=== PATIENT | female | born 1940 | race Caucasian/White ===

== ENCOUNTER 2020-08-02 13:03 | Emergency (ER) | payer MEDICARE ==
[~2020-08-02] VITALS: Ht 157.5 cm; Wt 107.0 kg
[~2020-08-02 13:03] MED LIST: ASPI-889 PO; AZAT50TA PO; BISA10SU4 RC; BISA10SU55 RC; CA/D1TAB3 PO; CARV25TA2 PO; CIPR2.5D OD; CLIN300C8 PO; DICL100G18 TP; DIGO125T17 PO; DILT120C99 PO; DOCU100C28 PO; DULO60CA6 PO; FENO134C PO; GLYC1SUP61 RC; IMIP25TA3 PO; LEVO175T5 PO; LEVO200T5 PO; LOPE2CAP PO; LORA-254 PO; MAG355OR17 PO; MAG355OR30 PO; MAGN24003 PO; MENT71OI TP; MESA800T2 PO; METH29OI TP; NA P133E2 RC; NA P133E6 RC; NYST15CR2 TP; NYST1POW2 TP; OXYC5TAB4 PO; POLY255P11 PO; PROP1DRO6 EACHEYE; QUET25TA5 PO; SERT25TA4 PO; SULF1TAB24 PO; TOLT4CAP PO; TRAM50TA PO; TRAZ-120 PO; TRAZ150T49 PO
--- NOTE | 2020-08-02 14:33 | RAD ---
Examination: CT HEAD AND CERVICAL SPINE WO History: Reason: FELL, HEAD AND NECK PAIN / Spl. Instructions: / History: Comparison/Correlation: None Findings: Axial images of the head and cervical spine were obtained without contrast. Sagittal and coronal reformatted images of the cervical spine were provided. Moderate atrophy and chronic ischemic changes but matter noted. No intracranial hemorrhage, shift, or mass effect. 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 Orbits are unremarkable. Large left pito bullosa is present. Small right pito bullosa noted. Minimal mucosal thickening of the left maxillary sinus is present. Mild atlantoaxial degenerative changes present. Moderate C5-C7 disc space narrowing is present. Uncovertebral joint spurring at C5-6 bilaterally with mild bony encroachment identified. Soft tissues of the neck are unremarkable. Thyroid gland unremarkable. Impression: No intracranial hemorrhage. No fracture or cervical spine malalignment. PQRS Compliance Statement: One or more of the following individualized dose reduction techniques were utilized for this examination: 1. Automated exposure control 2. Adjustment of the mA and/or kV according to patient size 3. Use of iterative reconstruction technique Electronically signed by: Kenneth Flaherty MD (08/02/2020 2:30 PM) [id number]
--- NOTE | 2020-08-02 14:36 | RAD ---
Examination: KNEE LEFT 3V History: Reason: fell,left knee injured / Spl. Instructions: / History: Comparison/Correlation: None Findings: Total of 3 images of the left knee were obtained. Severe narrowing of the medial compartment with remodeling is present. Severe varus deformity of the left knee is present. Patellofemoral compartment degenerative remodeling is present. No fracture or bone destruction. Soft tissues are unremarkable for the patient's age. 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 Patellofemoral compartment and remodeling of a lesser extent.. Electronically signed by: Kenneth Flaherty MD (08/02/2020 2:33 PM) [id number]
[2020-08-02 15:13] LABS: BASO # 0.1 x10^3/uL (0.0-0.2); BASO % 1 % (0-3); EOS # 0.1 x10^3/uL (0.0-0.7); EOS % 2 % (0-3); HEMATOCRIT 31.7 % (36.0-47.0); HEMOGLOBIN 9.3 g/dL (12.0-15.5); LYMPH # 1.6 x10^3/uL (1.0-4.8); LYMPH % 19 % (24-48); MEAN CORPUSCULAR HEMOGLOBIN 21 pg (25-35); MEAN CORPUSCULAR HGB CONC 29 g/dL (31-37); MEAN CORPUSCULAR VOLUME 70 fL (79-100); MONO # 0.9 x10^3/uL (0.0-1.1); MONO % 11 % (0-9); NEUT # 5.6 x10^3uL (1.8-7.7); NEUT % 67 % (31-73); PLATELET COUNT 347 x10^3/uL (140-400); RED BLOOD COUNT 4.51 x10^6/uL (3.50-5.40); WHITE BLOOD COUNT 8.3 x10^3/uL (4.0-11.0)
[2020-08-02 15:20] LABS: CALCIUM 9.4 mg/dL (8.5-10.1); CREATININE 0.9 mg/dL (0.6-1.0); GFR 60.6; POTASSIUM 4.1 mmol/L (3.5-5.1)
[2020-08-02 15:27] LABS: ALBUMIN 2.8 g/dL (3.4-5.0); ALBUMIN/GLOBULIN RATIO 0.6 (1.0-1.7); MAGNESIUM 2.4 mg/dL (1.8-2.4); TOTAL BILIRUBIN 0.3 mg/dL (0.2-1.0); TOTAL PROTEIN 7.4 g/dL (6.4-8.2)
--- NOTE | 2020-08-02 15:32 | EKG ---
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
[2020-08-02 15:41] LABS: BILIRUBIN,URINE NEG (NEG); CLARITY,URINE CLEAR; COLOR,URINE STRAW; GLUCOSE,URINE NEG (NEG)
[2020-08-02 15:42] LABS: BACTERIA,URINE FEW /HPF (0-FEW); NITRITE,URINE NEG (NEG); SQUAMOUS EPITHELIAL CELL,UR MOD /LPF; UROBILINOGEN,URINE 0.2 mg/dL (0.2 mg/dL); WBC,URINE 0 /HPF (0-4)
--- NOTE | 2020-08-02 16:18 | PHYS DOC ---
Past History Past Medical History: A-Fib, Anxiety, Arthritis, GERD, Heart Disease, Hypertension Past Surgical History: No Surgical History Alcohol Use: None Drug Use: None General Adult EDM: Chief Complaint: MECHANICAL FALL HPI: HPI: Patient is a 79-year-old female who was brought here by EMS from home after she fell out of her wheelchair. Patient tried to get out of her wheelchair, lost control and fell down, hit the back of her head on the ground. Patient also hit left shoulder on the ground, and left knee on the ground. Patient is on Eliquis. Patient denies any chest pain, no abdominal pain, no back pain. Patient denies any pain in her left shoulder. Review of Systems: Review of Systems: Constitutional: Denies fever or chills Eyes: Denies change in visual acuity HENT: Denies nasal congestion or sore throat Respiratory: Denies cough or shortness of breath Cardiovascular: Denies chest pain or edema GI: Denies abdominal pain, nausea, vomiting, bloody stools or diarrhea : Denies dysuria Musculoskeletal: Denies back pain , positive for left knee pain. Integument: Denies rash Neurologic: Positive for headache, no focal weakness or numbness. Endocrine: Denies polyuria or polydipsia Lymphatic: Denies swollen glands Psychiatric: Denies depression or anxiety Heart Score: Risk Factors: Risk Factors: DM, Current or recent (<one month) smoker, HTN, HLP, family history of CAD, obesity. Risk Scores: Score 0 - 3: 2.5% MACE over next 6 weeks - Discharge Home Score 4 - 6: 20.3% MACE over next 6 weeks - Admit for Clinical Observation Score 7 - 10: 72.7% MACE over next 6 weeks - Early Invasive Strategies Allergies: Allergies: Allergies Coded Allergies Type Severity Reaction Last Updated Verified Penicillins Allergy Intermediate 12/18/14 Yes acetaminophen Allergy Intermediate 12/18/14 Yes tetanus toxoid, adsorbed Allergy Intermediate 12/18/14 Yes Physical Exam: PE: Constitutional: Well developed, well nourished, no acute distress, non-toxic appearance. OBESE. HENT: Normocephalic, scalp contusion on occipital area, no laceration, bilateral external ears normal, oropharynx moist, no oral exudates, nose normal. [] Eyes: PERRLA, EOMI, conjunctiva normal, no discharge. [] Neck: Normal range of motion, no tenderness, supple, no stridor. [] Cardiovascular:Heart rate regular rhythm, no murmur [] Lungs & Thorax: Bilateral breath sounds clear to auscultation [] Abdomen: Bowel sounds normal, soft, no tenderness, no masses, no pulsatile masses. [] Skin: Warm, dry, no erythema, no rash. [] Back: No tenderness, no CVA tenderness. [] Extremities: THERE IS SUPERFICIAL SKIN CONTUSION ON LEFT SHOULDER BUT NO BONY TENDERNESS TO PALPATION, THERE IS FULL RANGE OF MOTION. There is contusion and tender to palpation on left anterior knee cap, full range of motion. NO PELVIC TENDER OR HIPS TENDER TO PALPATION. Neurologic: Alert and oriented X 3, normal motor function, normal sensory function, no focal deficits noted. [] Psychologic: Affect normal, judgement normal, mood normal. [] Current Patient Data: Labs: Laboratory Tests Test 08/02/20 14:06 08/02/20 14:07 08/02/20 15:05 White Blood Count 8.3 x10^3/uL (4.0-11.0) Red Blood Count 4.51 x10^6/uL (3.50-5.40) Hemoglobin 9.3 g/dL (12.0-15.5) L Hematocrit 31.7 % (36.0-47.0) L Mean Corpuscular Volume 70 fL (79-100) L Mean Corpuscular Hemoglobin 21 pg (25-35) L Mean Corpuscular Hemoglobin Concent 29 g/dL (31-37) L Red Cell Distribution Width 20.0 % (11.5-14.5) H Platelet Count 347 x10^3/uL (140-400) Neutrophils (%) (Auto) 67 % (31-73) Lymphocytes (%) (Auto) 19 % (24-48) L Monocytes (%) (Auto) 11 % (0-9) H Eosinophils (%) (Auto) 2 % (0-3) Basophils (%) (Auto) 1 % (0-3) Neutrophils # (Auto) 5.6 x10^3uL (1.8-7.7) Lymphocytes # (Auto) 1.6 x10^3/uL (1.0-4.8) Monocytes # (Auto) 0.9 x10^3/uL (0.0-1.1) Eosinophils # (Auto) 0.1 x10^3/uL (0.0-0.7) Basophils # (Auto) 0.1 x10^3/uL (0.0-0.2) Prothrombin Time 11.6 SEC (9.4-11.4) H Prothrombin Time INR 1.1 (0.9-1.1) Activated Partial Thromboplast Time 25 SEC (23-33) Sodium Level 140 mmol/L (136-145) Potassium Level 4.1 mmol/L (3.5-5.1) Chloride Level 104 mmol/L (98-107) Carbon Dioxide Level 27 mmol/L (21-32) Anion Gap 9 (6-14) Blood Urea Nitrogen 20 mg/dL (7-20) Creatinine 0.9 mg/dL (0.6-1.0) Estimated GFR (Cockcroft-Gault) 60.6 BUN/Creatinine Ratio 22 (6-20) H Glucose Level 98 mg/dL (70-99) Calcium Level 9.4 mg/dL (8.5-10.1) Magnesium Level 2.4 mg/dL (1.8-2.4) Total Bilirubin 0.3 mg/dL (0.2-1.0) Aspartate Amino Transferase (AST) 12 U/L (15-37) L Alanine Aminotransferase (ALT) 11 U/L (14-59) L Alkaline Phosphatase 100 U/L (46-116) Total Protein 7.4 g/dL (6.4-8.2) Albumin 2.8 g/dL (3.4-5.0) L Albumin/Globulin Ratio 0.6 (1.0-1.7) L Troponin I Quantitative < 0.017 ng/mL (0-0.055) Urine Collection Type U cath Urine Color Straw Urine Clarity Clear Urine pH 7.0 Urine Specific [place] 1.020 Urine Protein Neg (NEG-TRACE) Urine Glucose (UA) Neg mg/dL (NEG) Urine Ketones (Stick) Neg mg/dL (NEG) Urine Blood Trace (NEG) Urine Nitrite Neg (NEG) Urine Bilirubin Neg (NEG) Urine Urobilinogen Dipstick 0.2 mg/dL (0.2 mg/dL) Urine Leukocyte Esterase Neg (NEG) Urine RBC 1-2 /HPF (0-2) Urine WBC 0 /HPF (0-4) Urine Squamous Epithelial Cells Mod /LPF Urine Bacteria Few /HPF (0-FEW) Vital Signs: Vital Signs Date Time Temp Pulse Resp B/P (MAP) Pulse Ox O2 Delivery O2 Flow Rate FiO2 08/02/20 14:28 98.4 54 20 141/75 (97) 99 Room Air EKG: EKG: [] Radiology/Procedures: Radiology/Procedures: [][address] [address] IMAGING REPORT Signed PATIENT: MCKENZIE ROCHA JACCOUNT: [id number] : 1940 LOCATION: ER AGE: 79 SEX: F EXAM STATUS: REG ER ORD. PHYSICIAN: JR AGOSTO DO REASON: FELL, HEAD AND NECK PAIN PROCEDURE: CT HEAD AND CERVICAL SPINE WO Examination: CT HEAD AND CERVICAL SPINE WO History: Reason: FELL, HEAD AND NECK PAIN / Spl. Instructions: / History: Comparison/Correlation: None Findings: Axial images of the head and cervical spine were obtained without contrast. Sagittal and coronal reformatted images of the cervical spine were provided. Moderate atrophy and chronic ischemic changes but matter noted. No intracranial hemorrhage, shift, or mass effect. 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 Orbits are unremarkable. Large left pito bullosa is present. Small right pito bullosa noted. Minimal mucosal thickening of the left maxillary sinus is present. Mild atlantoaxial degenerative changes present. Moderate C5-C7 disc space narrowing is present. Uncovertebral joint spurring at C5-6 bilaterally with mild bony encroachment identified. Soft tissues of the neck are unremarkable. Thyroid gland unremarkable. Impression: No intracranial hemorrhage. No fracture or cervical spine malalignment. PQRS Compliance Statement: One or more of the following individualized dose reduction techniques were utilized for this examination: 1. Automated exposure control 2. Adjustment of the mA and/or kV according to patient size 3. Use of iterative reconstruction technique Electronically signed by: Kenneth Contreras MD (08/02/2020 2:30 PM) [id number] DICTATED AND SIGNED BY: KENNETH CONTRERAS MD DATE: 08/02/20 2991 CC: JR AGOSTO DO; SO VICKERS MD ~ [address] [address] IMAGING REPORT Signed PATIENT: MCKENZIE ROCHA: [id number] : 1940 LOCATION: ER AGE: 79 SEX: F EXAM STATUS: REG ER ORD. PHYSICIAN: JR AGOSTO DO REASON: fell,left knee injured PROCEDURE: KNEE LEFT 3V Examination: KNEE LEFT 3V History: Reason: fell,left knee injured / Spl. Instructions: / History: Comparison/Correlation: None Findings: Total of 3 images of the left knee were obtained. Severe narrowing of the medial compartment with remodeling is present. Severe varus deformity of the left knee is present. Patellofemoral compartment degenerative remodeling is present. No fracture or bone destruction. Soft tissues are unremarkable for the patient's age. 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 Patellofemoral compartment and remodeling of a lesser extent.. Electronically signed by: Kenneth Contreras MD (08/02/2020 2:33 PM) [id number] DICTATED AND SIGNED BY: KENNETH CONTRERAS MD DATE: 08/02/20 143 CC: JR AGOSTO DO; SO VICKERS MD ~ [address] [address] IMAGING REPORT Signed PATIENT: MCKENZIE ROCHAUNT: [id number] : 1940 LOCATION: ER AGE: 79 SEX: F EXAM STATUS: REG ER ORD. PHYSICIAN: JR AGOSTO DO REASON: fell,left knee injured PROCEDURE: KNEE LEFT 3V Examination: KNEE LEFT 3V History: Reason: fell,left knee injured / Spl. Instructions: / History: Comparison/Correlation: None Findings: Total of 3 images of the left knee were obtained. Severe narrowing of the medial compartment with remodeling is present. Severe varus deformity of the left knee is present. Patellofemoral compartment degenerative remodeling is present. No fracture or bone destruction. Soft tissues are unremarkable for the patient's age. 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 Patellofemoral compartment and remodeling of a lesser extent.. Electronically signed by: Kenneth Contreras MD (08/02/2020 2:33 PM) [id number] DICTATED AND SIGNED BY: KENNETH CONTRERAS MD DATE: 08/02/201432 CC: JR AGOSTO DO; SO VICKERS MD ~ [place] [address] IMAGING REPORT Signed PATIENT: MCKENZIE ROCHA JACCOUNT: [id number] : 1940 LOCATION: ER AGE: 79 SEX: F EXAM STATUS: REG ER ORD. PHYSICIAN: JR AGOSTO DO REASON: fell,left knee injured PROCEDURE: KNEE LEFT 3V Examination: KNEE LEFT 3V History: Reason: fell,left knee injured / Spl. Instructions: / History: Comparison/Correlation: None Findings: Total of 3 images of the left knee were obtained. Severe narrowing of the medial compartment with remodeling is present. Severe varus deformity of the left knee is present. Patellofemoral compartment degenerative remodeling is present. No fracture or bone destruction. Soft tissues are unremarkable for the patient's age. 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 Patellofemoral compartment and remodeling of a lesser extent.. Electronically signed by: Kenneth Contreras MD (08/02/2020 2:33 PM) [id number] DICTATED AND SIGNED BY: KENNETH CONTRERAS MD DATE: 08/02/201432 CC: JR AGOSTO DO; SO VICKERS MD ~ Course & Med Decision Making: Course & Med Decision Making Pertinent Labs and Imaging studies reviewed. (See chart for details) Patient is a 79-year-old female who was brought here by EMS from home due to head injury. Patient was on blood thinner, CT scan her head did not show any acute problem. X-ray of her left knee did not show any acute problem. Patient was awake alert and oriented. Patient was discharged home in stable condition. Dragon Disclaimer: Dragon Disclaimer: This electronic medical record was generated, in whole or in part, using a voice recognition dictation system. Departure Departure: Impression: Primary Impression: Head injury Disposition: 01 HOME/RESIDENCE PRIOR TO ADM Condition: STABLE Referrals: SO VICKERS MD (PCP) PLEASE CALL YOUR FAMILY DOCTOR FOR FOLLOW UP NEXT WEEK Patient Instructions: Head Injury, Adult Additional Instructions: Thank you for visiting our Emergency Department. We appreciate you trusting us with your care. If any additional problems come up don't hesitate to return to visit us. Please follow up with your primary care provider so they can plan berny tional care if needed and know about the problem that you had. If symptoms worsen come back to the Emergency Department. Any concerning symptoms that start such as chest pain, shortness of air, weakness or numbness on one side of the body, running high fevers or any other concerning symptoms return to the ER. JR AGOSTO DO Aug 02, 2020 16:18
[2020-08-02 16:32] VITALS: BP 138/54
== END 2020-08-02 17:24 | disposition home or self-care (01) ==
LOC: ER 13:03
DX: S40.022A Contusion of left upper arm, initial encounter (principal); S00.03XA Contusion of scalp, initial encounter; S80.02XA Contusion of left knee, initial encounter; I48.91 Unspecified atrial fibrillation; K21.9 Gastro-esophageal reflux disease without esophagitis; I11.9 Hypertensive heart disease without heart failure; M19.90 Unspecified osteoarthritis, unspecified site; Z88.0 Allergy status to penicillin; Z88.7 Allergy status to serum and vaccine; Z88.6 Allergy status to analgesic agent; V92.09XA Drowning and submersion due to fall off unspecified watercraft, initial encounter; Y93.89 Activity, other specified; Y92.89 Other specified places as the place of occurrence of the external cause; Y99.8 Other external cause status
CPT/HCPCS: 36415; 70450; 72125; 73562; 80053; 81001; 83735; 84484; 85025; 85610; 85730; 93005; 99285-25

== ENCOUNTER 2020-11-22 13:37 | Emergency (ER) | payer MEDICARE ==
[~2020-11-22] VITALS: Ht 157.5 cm; Wt 119.0 kg
[~2020-11-22 13:37] MED LIST changes: -CIPR2.5D OD; +CIPR2.5D2 OD; -CLIN300C8 PO; +CLIN300C9 PO
[2020-11-22 13:41] VITALS: BP 154/63
--- NOTE | 2020-11-22 14:46 | PHYS DOC ---
Past History Past Medical History: A-Fib, Anxiety, Arthritis, GERD, Heart Disease, Hypertension Past Surgical History: Hysterectomy Alcohol Use: None Drug Use: None Adult General Chief Complaint Chief Complaint: MECHANICAL FALL HPI HPI Patient 80-year-old female who presents to the emergency room after sitting on the floor due to her legs giving out. This is not unusual for her. She states that she is supposed to go live at a nursing facility that she has a bed at because of this. She denies hurting anything. She states that she feels completely normal. She would like to just go to the nursing facility. She has no other complaints. Review of Systems Review of Systems Complete ROS is negative unless otherwise documented in HPI Allergies Allergies Allergies Coded Allergies Type Severity Reaction Last Updated Verified Penicillins Allergy Intermediate 11/22/20 Yes acetaminophen Allergy Intermediate 11/22/20 Yes tetanus toxoid, adsorbed Allergy Intermediate 11/22/20 Yes Physical Exam Physical Exam General: Awake, alert, NAD. Well Nourished, well hydrated. Cooperative HEENT: Atraumatic, EOMI, PERRL, airway patent, moist oral mucosa Neck: Supple, trachea midline Respiratory: CTA bilaterally, normal effort, no wheezing/crackles CV: RRR, no murmur, cap refill <2 GI: Soft, nondistended, nontender, no masses MSK: No obvious deformities Skin: Warm, dry, intact Neuro: A&O x3, speech NL, sensory and motor grossly intact, no focal deficits Psych: Normal affect, normal mood, not suicidal or homicidal Current Patient Data Vital Signs Vital Signs Date Time Temp Pulse Resp B/P (MAP) Pulse Ox O2 Delivery O2 Flow Rate FiO2 11/22/20 13:41 98.2 54 16 154/63 (93) 96 EKG EKG [] Radiology/Procedures Radiology/Procedures [] Heart Score Risk Factors: Risk Factors: DM, Current or recent (<one month) smoker, HTN, HLP, family histo ry of CAD, obesity. Risk Scores: Risk Factors: DM, Current or recent (<one month) smoker, HTN, HLP, family history of CAD, obesity. Course & Med Decision Making Course & Med Decision Making Pertinent Labs and Imaging studies reviewed. (See chart for details) Patient is a 80-year-old female who presents to the emergency room stating that she sat on the floor due to generalized weakness. This is not unusual for her. She has had several episodes like this previously. She states that they have set it up for her to go to a nursing facility. She states they called the ambulance because she wanted them to take her to the nursing facility but they brought her to the emergency room. She has no complaints. She denies any injuries. Will call the nursing facility to see if patient has arrangements to be admitted there. At this time she does not need any radiology to evaluate for injuries and she does not need any lab work as this is her baseline. Patient has been accepted at the living facility and will be transferred there from here. Dragon Disclaimer Dragon Disclaimer This electronic medical record was generated, in whole or in part, using a voice recognition dictation system. Departure Departure: Impression: Primary Impression: Weakness Disposition: 01 DC HOME SELF CARE/HOMELESS Condition: STABLE Referrals: SO VICKERS MD (PCP) Patient Instructions: LINDA Hanna MD Nov 22, 2020 14:46
== END 2020-11-22 16:14 | disposition home or self-care (01) ==
LOC: ER 13:37
DX: R53.1 Weakness (principal); I48.91 Unspecified atrial fibrillation; F41.9 Anxiety disorder, unspecified; M19.90 Unspecified osteoarthritis, unspecified site; K21.9 Gastro-esophageal reflux disease without esophagitis; I11.9 Hypertensive heart disease without heart failure; Z88.0 Allergy status to penicillin; Z88.7 Allergy status to serum and vaccine; Z88.8 Allergy status to other drugs, medicaments and biological substances
CPT/HCPCS: 99281; 99283

== ENCOUNTER 2021-04-12 22:58 | Observation (INO) | payer MEDICARE ==
[~2021-04-12] VITALS: Ht 162.6 cm; Wt 94.2 kg
[~2021-04-12 22:58] MED LIST changes: +SERT-267 PO; -SERT25TA4 PO
[2021-04-12] MEDS ORDERED: IV NORMAL SALINE 1,000ML 1,000 ML IV ONE (23:30)
[2021-04-12] MEDS ORDERED: ATROPINE 0.5 MG/5 ML DISP.SYRIN. IV ONE (23:30)
--- NOTE | 2021-04-12 23:54 | PHYS DOC ---
Past History Past Medical History: A-Fib, Anxiety, Arthritis, GERD, Heart Disease, Hypertension Past Surgical History: Hysterectomy Alcohol Use: None Drug Use: None General Adult EDM: Chief Complaint: GENERALIZED BODY ACHES HPI: HPI: 80-year-old female presents with decreased ability to move around at home. The patient was sitting in chair at home and family could not get her up and out of the chair for around 30 minutes. This was unusual. The patient tells me that she does not have any particular complaints. She states that she does not walk very much but usually uses a wheelchair. She is able to stand and pivot. When asked if she is feeling well she says yes. Patient has known atrial fibrillation. She did take her medications this evening but does not know what medication she takes. She is on tramadol for pain. She has no specific complaints. Review of Systems: Review of Systems: Constitutional: Denies fever or chills Eyes: Denies change in visual acuity HENT: Denies nasal congestion or sore throat Respiratory: Denies cough or shortness of breath Cardiovascular: Bradycardia. Denies chest pain or edema GI: Denies abdominal pain, nausea, vomiting, bloody stools or diarrhea : Denies dysuria Musculoskeletal: Denies back pain or joint pain Integument: Denies rash Neurologic: Denies headache, focal weakness or sensory changes Endocrine: Denies polyuria or polydipsia Lymphatic: Denies swollen glands Psychiatric: Denies depression or anxiety Current Medications: Current Meds: Current Medications Medications (Trade) Dose Ordered Sig/[facility] Start Time Stop Time Status Last Admin Dose Admin Atropine Sulfate (ATROPINE 0.5mg SYRINGE) 0.5 mg 1X ONCE 04/12/21 23:30 04/12/21 23:31 DC Sodium Chloride 1,000 ml @ 1,000 mls/hr 1X ONCE 04/12/21 23:30 04/13/21 00:29 04/12/21 23:38 1,000 MLS/HR Allergies: Allergies: Allergies Coded Allergies Type Severity Reaction Last Updated Verified Penicillins Allergy Intermediate 11/22/20 Yes acetaminophen Allergy Intermediate 11/22/20 Yes tetanus toxoid, adsorbed Allergy Intermediate 11/22/20 Yes Physical Exam: PE: Constitutional: Well developed, well nourished, morbidly obese, no acute distress, non-toxic appearance. [] HENT: Normocephalic, atraumatic, bilateral external ears normal, oropharynx moist, no oral exudates, nose normal. [] Eyes: PERRLA, EOMI, conjunctiva normal, no discharge. [] Neck: Normal range of motion, no tenderness, supple, no stridor. [] Cardiovascular: Heart rate 42, irregular rhythm, no murmur [] Lungs & Thorax: Bilateral breath sounds clear to auscultation [] Abdomen: Bowel sounds normal, soft, no tenderness, no masses, no pulsatile masses. [] Skin: Warm, dry, no erythema, no rash. [] Back: No tenderness, no CVA tenderness. [] Extremities: No tenderness, no cyanosis, no clubbing, ROM intact, 4+ pitting edema bilateral lower extremities.. [] Neurologic: Alert and oriented X 3, normal motor function, normal sensory function, no focal deficits noted. [] Psychologic: Affect normal, judgement normal, mood normal. [] EKG: EKG: [] Radiology/Procedures: Radiology/Procedures: [] Heart Score: C/O Chest Pain: N/A Risk Factors: Risk Factors: DM, Current or recent (<one month) smoker, HTN, HLP, family history of CAD, obesity. Risk Scores: Score 0 - 3: 2.5% MACE over next 6 weeks - Discharge Home Score 4 - 6: 20.3% MACE over next 6 weeks - Admit for Clinical Observation Score 7 - 10: 72.7% MACE over next 6 weeks - Early Invasive Strategies Course & Med Decision Making: Course & Med Decision Making Pertinent Labs and Imaging studies reviewed. (See chart for details) After the patient hooked up to the monitor, she had bradycardia down into the 30s. She was mostly 40-47. She was able to wake up and talk without difficulty. She was given half milligram of atropine. Her heart rate has improved to 55. Her blood pressure is within normal limits. I spoke with Dr. Savage, cardiology and he does not think further intervention is warranted at this time. As long as her mentation is normal and she seems asymptomatic she can be admitted here to [facility] and observed. The rest of her work-up is pending. I spoke with Dr. Ramirez and he has accepted the patient for admission. The patient's labs are significant for hemoglobin of 7.8. This is less than her previous from 2019. Her urinalysis is negative for infection. She has an elevated glucose. [] Dragon Disclaimer: Dragon Disclaimer: This electronic medical record was generated, in whole or in part, using a voice recognition dictation system. Departure Departure: Impression: Primary Impression: Bradycardia Additional Impression: Anemia Qualified Codes: D64.9 - Anemia, unspecified Disposition: ADMITTED INPATIENT Admitting Physician: Shan Ramirez Condition: STABLE Referrals: SO VICKERS MD (PCP) MADIE OLIVEIRA DO Apr 12, 2021 23:54
[2021-04-12 23:56] LABS: CALCIUM 7.8 mg/dL (8.5-10.1); GFR 53.5; POTASSIUM 3.6 mmol/L (3.5-5.1)
[2021-04-13 00:03] LABS: ALBUMIN 2.4 g/dL (3.4-5.0); ALBUMIN/GLOBULIN RATIO 0.5 (1.0-1.7); TOTAL BILIRUBIN 0.4 mg/dL (0.2-1.0)
[2021-04-13 00:10] LABS: BILIRUBIN,URINE SMALL (NEG); CLARITY,URINE HAZY; COLOR,URINE YELLOW; GLUCOSE,URINE NEG (NEG)
[2021-04-13 00:14] LABS: AMORPHOUS SEDIMENT,UR PRESENT /HPF; BACTERIA,URINE FEW /HPF (0-FEW); NITRITE,URINE NEG (NEG); RBC,URINE OCC /HPF (0-2); SQUAMOUS EPITHELIAL CELL,UR FEW /LPF; UROBILINOGEN,URINE 0.2 mg/dL (0.2 mg/dL); WBC,URINE OCC /HPF (0-4)
[2021-04-13 00:15] LABS: HYALINE CASTS, URINE OCC /HPF
[2021-04-13 00:22] LABS: BASO # 0.1 x10^3/uL (0.0-0.2); BASO % 1 % (0-3); EOS # 0.3 x10^3/uL (0.0-0.7); EOS % 4 % (0-3); HEMATOCRIT 26.7 % (36.0-47.0); HEMOGLOBIN 7.8 g/dL (12.0-15.5); LYMPH # 1.2 x10^3/uL (1.0-4.8); LYMPH % 16 % (24-48); MEAN CORPUSCULAR HEMOGLOBIN 19 pg (25-35); MEAN CORPUSCULAR HGB CONC 29 g/dL (31-37); MEAN CORPUSCULAR VOLUME 65 fL (79-100); MONO # 0.7 x10^3/uL (0.0-1.1); MONO % 10 % (0-9); NEUT # 5.1 x10^3uL (1.8-7.7); NEUT % 69 % (31-73); PLATELET COUNT 325 x10^3/uL (140-400); RED BLOOD COUNT 4.11 x10^6/uL (3.50-5.40); RED CELL DISTRIBUTION WIDTH 19.5 % (11.5-14.5); WHITE BLOOD COUNT 7.4 x10^3/uL (4.0-11.0)
[2021-04-13] MEDS ORDERED: ATROPINE 1 MG/10 ML DISP.SYRINGE. IV PRN (00:45)
[2021-04-13] MEDS ORDERED: ATROPINE SULFATE 1 MG VIAL IV PRN (01:00)
[2021-04-13 01:24] LABS: HYPOCHROMIA PRESENT; PLT ESTIMATE ADEQUATE (ADEQUATE)
[2021-04-13 01:25] LABS: ANISOCYTOSIS PRESENT; MICROCYTOSIS PRESENT; POIKILOCYTOSIS PRESENT
[2021-04-13 01:45] VITALS: BP 144/56
--- NOTE | 2021-04-13 04:33 | NUR ---
The patient, MCKENZIE ROCHA, 80 y/o, F admitted by PARADISE GROSS MD, was given written information regarding hospital policies, unit procedures and contact persons. Pt arrived via EMS at 0145. Valuables were checked, logged, and left with pt..
--- NOTE | 2021-04-13 06:25 | EKG ---
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
--- NOTE | 2021-04-13 06:25 | NUR ---
PTS HEART RATE CONTINUED TO DROP IN TO THE UPPER 30'S ATROPINE WAS GIVEN PER ORDER. PTS O2 SAT HAS BEEN CHECKED MULTIPLE TIMES THIS EVENING DUE TO PT SAYING SHE COULDNT BREATH. PTS 02 WAS NEVER LOWER THEN 92%. WE DID PUT PT ON 1L NC FOR COMFORT. PT BECAME MORE CONFUSED, RESTLESS AND ANXIOUS THIS MORNING. PT STATES SHE ISNT SUPPOSE TO BE HERE AND THAT SHE WANTS HER . PT HAS BEEN REORIENTED MULTIPLE TIMES ONLY TO HAVE TO PT REMAIN CONFUSED. CALLED DR FOR A PRN TO HELP CALM PT. DR STATED HE DIDNT WANT TO TREAT HER FOR THAT BEFORE HE WAS ABLE TO ASSESS HER. PT HAS BEEN IN AND OUT OF SLEEP FOR THE PAST 1.5 HRS. CURRENTLY SLEEPING IN BED. WILL CONTINUE TO MONITOR.
[2021-04-13 07:00] VITALS: BP 141/87
--- NOTE | 2021-04-13 09:21 | NUR ---
CONSULT FOR CARDIOLOGY HAS BEEN CALLED.
[2021-04-13] MEDS: FUROSEMIDE 100 MG/10 ML VIAL IVP SCH ×2 (09:34→14:50)
[2021-04-13] MEDS: SERTRALINE 25 MG TABLET. PO SCH (09:35)
[2021-04-13] MEDS: POTASSIUM CHLORIDE 20 MEQ TABLET.ER. PO SCH ×2 (09:35→20:13)
[2021-04-13] MEDS: LEVOTHYROXINE 150 MCG TABLET PO SCH (09:35)
--- NOTE | 2021-04-13 10:08 | HP ---
ADMIT DATE: 04/12/2021 SUBJECTIVE: Weakness. HISTORY OF PRESENT ILLNESS: The patient is a 80-year-old female who has been living at home. She has become progressively more difficult to manage. The could not take care of her. He brought her to the emergency room seeking help and shelter placement. In the ED, they put her on the monitor and it turned out that her heart rate was in the mid 30s. It is irregularly irregular. She has underlying atrial fibrillation. She is on 3 medicines, which will block impulse through the atrioventricular node, these are digitalis, diltiazem and carvedilol. These have been held. She was given a dose of atropine with some improvement. By the time I saw her the next morning, she was alert, very agitated, confused, but her heart rate was in the 60s, the ventricular rate is 62 per minute, irregularly irregular rhythm. Throughout the night, there was some bursts of tachyarrhythmia. Again, irregularly irregular. I suspect she has paroxysmal atrial fibrillation with bradycardia related to her medications. The Cardiology services has been notified. She does not see a local flat examiner here, but they will be consulted for evaluation, most likely sick sinus syndrome. She is very agitated and confused. She has underlying dementia. She also has chronic stasis dermatitis. She is nonambulatory. She is morbidly obese. 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 CURRENT MEDICATIONS: Reviewed. Once again, she was taking Coreg, digitalis, along with aspirin, azathioprine, diclofenac, docusate, Synthroid, loperamide, lorazepam, methyl salicylate, nystatin, oxycodone p.r.n., MiraLax, Seroquel, Zoloft, Bactrim-DS, Detrol-LA tramadol and trazodone. SOCIAL HISTORY: She is a nonsmoker, nondrinker. FAMILY HISTORY: Unobtainable. REVIEW OF SYSTEMS: Unobtainable due to the patient's mentation. She is very agitated and seeking her . PHYSICAL EXAMINATION: GENERAL: When I saw her, this is a confused, chronically ill-appearing elderly female. VITAL SIGNS: Her initial vital signs showed a blood pressure 141/87 mmHg. Pulse by the time I saw her was up to 66, irregularly irregular. She had been in the 30s and 40s on admission. She was afebrile, oxygen saturation 95% on room air. HEENT: Head is without trauma. Pupils are reactive. Sclerae nonicteric. Oropharynx is clear. NECK: Supple. No bruits identified. LUNGS: Otherwise, clear to auscultation. CARDIOVASCULAR: Showed irregularly irregular rhythm. No obvious gallops. Peripheral pulses are palpable and weak. ABDOMEN: Morbidly obese, protuberant. I cannot palpate any liver or spleen enlargement. Bowel sounds are hypoactive. EXTREMITIES: Show 4+ significant edema, extending all the way to her thighs. She has significant stasis dermatitis with ichthyosis. NEUROLOGIC: She is nonambulatory. Her mental status, she is profoundly demented and confused. PERTINENT LABORATORY STUDIES: Her admission hemoglobin was 7.8 g/dL with a white count of 7400. Her sodium is 141 mEq, potassium 3.6, creatinine is 1.0 mg %. Nonfasting blood sugar 157. Transaminase is within normal range. ASSESSMENT: 1. A 80-year-old female has significant bradycardia related to her medications blocking impulse through the AV node. 2. Paroxysmal atrial fibrillation with rapid ventricular rate. 3. Probable sick sinus syndrome. 4. Volume overload. 5. Anemia of chronic disease. 6. Generalized debilitation. 7. Profound dementia. 8. Stasis dermatitis. PLAN: 1. Admit to the inpatient unit. 2. Telemetry monitoring. 3. I have held her digitalis, diltiazem and carvedilol. 4. Simplification of meds. 5. Diuresis. 6. Serial chemistries. 7. Potassium and magnesium replacement. 8. I will try to contact the . I have tried twice his morning. I believe that he is asking us to help with shelter placement. LESIA DR: Shannan TID: [id number] CC: Marcin Marroquin
[2021-04-13 11:16] VITALS: BP 145/65
[2021-04-13 15:45] VITALS: BP 189/63
--- NOTE | 2021-04-13 15:45 | NUR ---
Assumed care of patient. Pt given shower, pt up with johnny lift as patient is in pain with movement and is severely weak. Pt has purewick catheter in place. Pt Afib with PVCs. Foam dressings over wounds on buttocks and coccyx. Nystatin powder applied under breast and in pannus. WCTM.
[2021-04-13] MEDS: traMADol 50 MG TABLET PO PRN (15:54)
[2021-04-13] MEDS: NYSTATIN TOPICAL POWDER 15GM BOTTLE. TP SCH (16:46)
[2021-04-13 20:02] VITALS: BP 150/64
[2021-04-13] MEDS: QUEtiapine 25 MG TABLET. PO SCH (20:13)
[2021-04-14 00:06] VITALS: BP 145/67
--- NOTE | 2021-04-14 05:31 | NUR ---
Nursing note: Pt A&Ox3 on assessment. Pt asking for , explained that was at home and would come see her 04/14; pt seemed to calm. Requested a snack and then to be left alone. Pt purewick catheter drained well throughout shift, I&O noted in chart. VSS, will CTM
[2021-04-14 06:00] VITALS: BP 182/87
[2021-04-14] MEDS: LEVOTHYROXINE 150 MCG TABLET PO SCH (06:05)
[2021-04-14] MEDS ORDERED: IRON SUCROSE COMPLEX 400 MG in IV NORMAL SALINE 250ML 250 ML IV ONE (08:15)
--- NOTE | 2021-04-14 08:35 | PN ---
DATE: 04/14/2021 ATTENDING PHYSICIAN: Dr. Ramirez. SUBJECTIVE: The patient remains confused. She is less agitated. She is calm. She has no new complaints. OBJECTIVE FINDINGS: VITAL SIGNS: Her blood pressure this morning is 146/67, her pulse is between 60 and 70, irregularly irregular. Her temperature is 98.6 degrees Fahrenheit and her oxygen saturation 94% on room air. HEENT: Head is without trauma. The pupils are reactive. The sclerae are nonicteric. The oropharynx is clear. NECK: Supple. There is no stridor or bruits. LUNGS: Shallow respirations with diminished breath sounds at the bases. CARDIOVASCULAR: Showed distant heart tones, irregularly irregular rhythm. Her peripheral pulses are palpable and full. ABDOMEN: Obese, protuberant. No organomegaly. Bowel sounds were hypoactive. EXTREMITIES: Still shows significant stasis dermatitis bilaterally. There is 3+ edema extending up to her thighs. There is significant skin changes and ichthyosis consistent with longstanding neglect as well as stasis dermatitis. NEUROLOGIC: Pleasantly confused, less agitated. She is nonambulatory. She has very little insight. LABORATORY DATA: Her CBC and her repeat chemistry panel is pending. ASSESSMENT: 1. A 80-year-old female with generalized debilitation. Her cannot take care of her at home. 2. Asymptomatic bradycardia related to the triple combination of digitalis, diltiazem and carvedilol, blocking in pulse through the AV node. Since we have stopped those medications, her blood pressures up, but her heart rate also up. She also has breakthrough bouts of paroxysmal atrial fibrillation with rapid ventricular rate. I suspect she may have the beginnings of a sick sinus syndrome. She is not a candidate for procedures. She is a DNR per advanced directive. 3. Labile hypertension. 4. Permanent atrial fibrillation. 5. Anemia of chronic disease. 6. Stasis dermatitis. 7. Underlying dementia. PLAN: 1. I will restart her Coreg at low dose to 6.25 mg b.i.d. 2. Continue monitoring heart rate. 3. She is a DNR per advanced directive. I had a long discussion with her yesterday. 4. We are working on detention placement. We will initiate it on Thursday when our showcase maker gets here. 5. Follow up CBCs regarding her anemia. If blood counts remain low, she would be better off with the infusion of Venofer as opposed to blood transfusion. We will consider administering that. MIHAI DR: Shannan TID: [phone]
[2021-04-14] MEDS: MINERAL OIL/PETROLATUM TOPICAL CREAM 113GM JAR. TP SCH ×2 (09:00→20:02)
[2021-04-14] MEDS: SERTRALINE 25 MG TABLET. PO SCH (09:14)
[2021-04-14] MEDS: CARVEDILOL 6.25 MG TABLET PO SCH ×2 (09:14→17:11)
[2021-04-14] MEDS: ASPIRIN ENTERIC COATED 81 MG TABLET.DR. PO SCH (09:14)
[2021-04-14] MEDS: POTASSIUM CHLORIDE 20 MEQ TABLET.ER. PO SCH ×2 (09:14→20:01)
[2021-04-14] MEDS: FUROSEMIDE 100 MG/10 ML VIAL IVP SCH ×2 (09:16→12:53)
[2021-04-14] MEDS: NYSTATIN TOPICAL POWDER 15GM BOTTLE. TP SCH ×2 (09:16→20:02)
[2021-04-14 11:22] VITALS: BP 177/52
--- NOTE | 2021-04-14 12:59 | NUR ---
NURSING NOTE SPOKE WITH DR SOLOMON, ORDER FOR AMLODIPINE 5MG BID, HOLD PM DOSE OF LASIX, AND PT HAS ORDER FOR ECHO AND LABS. SERGEY HOPSON.
[2021-04-14] MEDS: amLODIPine BESYLATE 5 MG TABLET PO SCH ×2 (13:09→20:01)
[2021-04-14 14:45] LABS: CALCIUM 8.2 mg/dL (8.5-10.1); GFR 53.5; POTASSIUM 3.3 mmol/L (3.5-5.1)
[2021-04-14] MEDS: traMADol 50 MG TABLET PO PRN (15:56)
[2021-04-14 16:02] VITALS: BP 162/71
[2021-04-14 19:46] VITALS: BP 135/61
[2021-04-14] MEDS: QUEtiapine 25 MG TABLET. PO SCH (20:02)
[2021-04-15] MEDS: LEVOTHYROXINE 150 MCG TABLET PO SCH (05:39)
[2021-04-15 06:20] VITALS: BP 152/64
[2021-04-15 06:22] LABS: CALCIUM 8.1 mg/dL (8.5-10.1); CREATININE 0.8 mg/dL (0.6-1.0); GFR 69.2; POTASSIUM 3.5 mmol/L (3.5-5.1)
[2021-04-15] MEDS ORDERED: ONDANSETRON PF 4 MG/2 ML VIAL. IVP PRN (07:45)
[2021-04-15 08:34] LABS: BASO % 1 % (0-3); EOS # 0.3 x10^3/uL (0.0-0.7); EOS % 4 % (0-3); HEMATOCRIT 28.5 % (36.0-47.0); HEMOGLOBIN 8.4 g/dL (12.0-15.5); LYMPH # 1.7 x10^3/uL (1.0-4.8); LYMPH % 23 % (24-48); MEAN CORPUSCULAR HEMOGLOBIN 19 pg (25-35); MEAN CORPUSCULAR HGB CONC 30 g/dL (31-37); MEAN CORPUSCULAR VOLUME 64 fL (79-100); MONO # 0.9 x10^3/uL (0.0-1.1); MONO % 12 % (0-9); NEUT # 4.6 x10^3uL (1.8-7.7); NEUT % 60 % (31-73); PLATELET COUNT 325 x10^3/uL (140-400); RED BLOOD COUNT 4.43 x10^6/uL (3.50-5.40); RED CELL DISTRIBUTION WIDTH 19.8 % (11.5-14.5); WHITE BLOOD COUNT 7.6 x10^3/uL (4.0-11.0)
[2021-04-15] MEDS: traMADol 50 MG TABLET PO PRN (08:46)
[2021-04-15] MEDS: SERTRALINE 25 MG TABLET. PO SCH (08:46)
[2021-04-15] MEDS: POTASSIUM CHLORIDE 20 MEQ TABLET.ER. PO SCH (08:46)
[2021-04-15] MEDS: CARVEDILOL 6.25 MG TABLET PO SCH (08:46)
[2021-04-15] MEDS: ASPIRIN ENTERIC COATED 81 MG TABLET.DR. PO SCH (08:46)
[2021-04-15] MEDS: FUROSEMIDE 100 MG/10 ML VIAL IVP SCH (08:47)
[2021-04-15] MEDS: amLODIPine BESYLATE 5 MG TABLET PO SCH (08:47)
[2021-04-15] MEDS: MINERAL OIL/PETROLATUM TOPICAL CREAM 113GM JAR. TP SCH (08:48)
[2021-04-15] MEDS: NYSTATIN TOPICAL POWDER 15GM BOTTLE. TP SCH (08:49)
--- NOTE | 2021-04-15 09:18 | PN ---
DATE: 04/15/2021 ATTENDING PHYSICIAN: Dr. Ramirez. SUBJECTIVE: The patient is calmer. She is less agitated. She is comfortable. She is eating breakfast independently. We had a normal conversation. Repeat CBC is pending. OBJECTIVE FINDINGS: VITAL SIGNS: Blood pressure this morning is 135/61, pulse 75 and regular. She is afebrile and oxygen saturation 95% on 1 liter nasal cannula. HEENT: Head is without trauma. Pupils are reactive. Sclerae nonicteric. Oropharynx is clear. NECK: Supple. LUNGS: Shallow respirations. CARDIOVASCULAR: Regular heart tones. Irregularly irregular rhythm. No gallops. ABDOMEN: Soft, nontender. EXTREMITIES: Show chronic stasis dermatitis, 3+ pitting edema. SKIN: Has ichthyosis of her lower extremities. NEUROLOGIC FINDING: Focally intact. Speech is fluent. ASSESSMENT: 1. A 80-year-old female with generalized debilitation. cannot take care of her at home. 2. Asymptomatic bradycardia related to digitalis, diltiazem and carvedilol. I have stopped all these meds and restarted the Coreg at 6.25 mg b.i.d. 3. Paroxysmal atrial fibrillation. 4. Labile hypertension. 5. Permanent atrial fibrillation. 6. Anemia of chronic disease. 7. Stasis dermatitis. 8. Underlying dementia. PLAN: 1. Continue Coreg as prescribed. Her heart rates in the 70s today. 2. Continue monitoring heart rate. 3. We will respect her DNR status. 4. Follow up CBC following infusion of Venofer. 5. We are awaiting placement at [facility]. KATHY DR: Shannan TID: [id number]
[2021-04-15 10:39] VITALS: BP 141/70
[2021-04-15 13:25] VITALS: BP 111/67
--- NOTE | 2021-04-15 13:58 | DS ---
DATE OF DISCHARGE: 04/15/2021 DATE OF ADMISSION: 04/12/2021 DATE OF DISCHARGE: 04/15/2021 ATTENDING PHYSICIAN: Dr. Ramirez. FINAL DISCHARGE DIAGNOSES: 1. Generalized debilitation. 2. Asymptomatic bradycardia related to medications. 3. Paroxysmal atrial fibrillation. 4. Labile hypertension. 5. Permanent atrial fibrillation. 6. Anemia of chronic disease. 7. Stasis dermatitis. 8. Underlying dementia. HISTORY AND PHYSICAL: The patient is a 80-year-old female cared for at home multiple medical issues. She cannot care for herself. She is nonambulatory. She was admitted for further evaluation. She also had a bradycardic rhythm in the ED due to her digitalis, diltiazem, and the Coreg. PHYSICAL EXAMINATION: Please see my dictated note. PERTINENT LABORATORY AND X-RAY STUDIES: Admission hemoglobin was 7.8 g/dL. I did give her 400 mg of intravenous Venofer with improvement to 8.4 g/dL. Chemistry panel: Sodium is 144, potassium 3.5 mEq. This will be followed up and replaced. Creatinine 0.8 mg %. Nonfasting blood sugar is 90. Transaminases are normal. COURSE IN HOSPITAL: The patient was admitted. She was started on some intravenous iron to help with her blood count. We simplified her meds and we stopped her diltiazem, Coreg, and digoxin with marked improvement. Her ventricular rate came up to the 70s and 80s. I restarted her Coreg at a lower dose. Physical therapy saw the patient. We cleaned her feet and with just good proper nursing care, she felt better. By the fourth hospital day, she was medically stable and ready for discharge to a [facility] in [facility] very close to their home. Her meds have been simplified. She will continue her aspirin, Voltaren cream, Synthroid, methyl salicylate, nystatin, oxycodone p.r.n. pain, MiraLax 17 grams daily, Seroquel 25 mg at bedtime, Zoloft 75 mg daily and Detrol 4 mg daily. In addition, I recommended Lasix 80 mg p.o. daily and K-Dur 20 mEq daily. For now, I took the liberty of stopping her azathioprine, bisacodyl, vitamin C, Coreg dose has been decreased to 6.25 mg b.i.d., diltiazem has been stopped. Docusate, loperamide, lorazepam, magnesium hydroxide, sulfa drugs and tramadol, and trazodone doses. She is a DNR per advanced directives. She was discharged from our hospital in stable condition with explicit drug and followup care. Total discharge time spent 38 minutes. NHAN/DEA DR: Shannan TID: [id number] CC: Marcin Marroquin
--- NOTE | 2021-04-15 14:08 | NUR ---
Discharge Note Patient picked up per group home transport staff. Patient pain controlled although anxious. Patient report given to [facility] staff. Patient medically stable and invasive line was discontinued.
--- NOTE | 2021-04-16 07:37 | NUR ---
Wound Care Pt discharged prior to arrival of WC team.
== END 2021-04-15 13:40 | disposition still patient (30) ==
LOC: ER 22:58 → 1 SOUTH 04-13 00:39 → INTOOBSV 04-13 00:39
PROVIDERS: ADMIT Hospitalist; ATTEND Hospitalist
DX: R53.81 Other malaise (principal); R00.1 Bradycardia, unspecified; I48.0 Paroxysmal atrial fibrillation; I10 Essential (primary) hypertension; I48.21 Permanent atrial fibrillation; E87.70 Fluid overload, unspecified; D63.8 Anemia in other chronic diseases classified elsewhere; F03.90 Unspecified dementia, unspecified severity, without behavioral disturbance, psychotic disturbance, mood disturbance, and anxiety; I87.2 Venous insufficiency (chronic) (peripheral); K21.9 Gastro-esophageal reflux disease without esophagitis; M19.90 Unspecified osteoarthritis, unspecified site; F41.9 Anxiety disorder, unspecified; E66.01 Morbid (severe) obesity due to excess calories; Z66 Do not resuscitate; Z90.710 Acquired absence of both cervix and uterus; Z68.35 Body mass index [BMI] 35.0-35.9, adult
CPT/HCPCS: 36415; 80048; 80053; 81001; 85025; 86850; 86900; 86901; 93005; 96361; 96365; 96366; 96375; 96376; 97110; 97162; 97166; 97530; 99284; G0378; J0461; J1756; J2405; J7030; J7050; 96374; G0379; 99285-25

== ENCOUNTER 2021-05-02 20:56 | Emergency (ER) | payer MEDICARE ==
[~2021-05-02] VITALS: Ht 162.6 cm; Wt 94.2 kg
--- NOTE | 2021-05-02 21:16 | PHYS DOC ---
Past History Past Medical History: A-Fib, Anxiety, Arthritis, CAD, CHF, Depression, Fibromyalgia, GERD, High Cholesterol, Hypertension, UTI, Other Additional Past Medical Histor: Chronic pain, lower leg Cellulitis Past Surgical History: Hysterectomy Alcohol Use: None Drug Use: None Adult General HPI HPI Patient is a 80-year-old female with a past medical history significant for A. fib on Eliquis, hypertension, CAD, CHF who presents from home via EMS for a day of vomiting bright red blood and dark stool. States she has not had this before. States that she is having some abdominal cramping, 6 out of 10 as well with no radiation and feelings of shortness of breath. States she also feels extremely fatigued. Denies any recent traumas, illnesses, fevers, chest pain, dysuria, hematuria. States has been taking all her medications as prescribed. Review of Systems Review of Systems Review of systems otherwise unremarkable except noted in HPI Current Medications Current Medications Current Medications Medications (Trade) Dose Ordered Sig/Carly Start Time Stop Time Status Last Admin Dose Admin Lactated Ringer's 1,000 ml @ 1,000 mls/hr 1X ONCE 05/02/21 21:15 05/02/21 22:14 Pantoprazole Sodium (Protonix Vial) 80 mg 1X ONCE 05/02/21 21:15 05/02/21 21:16 UNV Allergies Allergies Allergies Coded Allergies Type Severity Reaction Last Updated Verified Penicillins Allergy Intermediate 04/12/21 Yes acetaminophen Allergy Intermediate 04/12/21 Yes tetanus toxoid, adsorbed Allergy Intermediate 04/12/21 Yes Physical Exam Physical Exam Constitutional: Well developed, well nourished, mild distress, appears ill. [] HENT: Normocephalic, atraumatic, mouth appears dry with significant amounts of dried blood in the oropharynx and nares Eyes: conjunctiva normal, no discharge. [] Neck: Normal range of motion, no tenderness, Cardiovascular: Sinus tachycardia Lungs & Thorax: Bilateral breath sounds clear to auscultation [] Abdomen: Hyperactive bowel sounds normal, soft, generalized tenderness, no masses, no pulsatile masses. [] Skin: Warm, dry, pale, multiple areas of erythema suggestive of fungal infection Back: no CVA tenderness. [] Extremities: No tenderness, no cyanosis, no clubbing, ROM intact, mild edema with stasis dermatitis [] Neurologic: Alert and oriented X 3, no focal deficits noted. [] EKG EKG [] Radiology/Procedures Radiology/Procedures [] TECHNIQUE: Multiple contiguous axial images were obtained throughout the chest, abdomen, and pelvis with the use of IV contrast. Axial images were reformatted into coronal and sagittal planes. 75 mL Omnipaque 300 was administered. One or more of the following dose reduction techniques were utilized: Automated exposure control (AEC), Adjustment of mA and/or kV according to patient size, Use of iterative reconstruction technique such as ASiR, CT scan done according to ALARA and image gently/image wisely. Findings: The thyroid is symmetric. There is no axillary, mediastinal, or hilar adenopathy. Mild burden pulmonary thromboembolic disease involving left lower lobe basilar subsegmental branches. Atherosclerosis of the thoracic aorta. Cardiomegaly. Coronary artery atherosclerotic disease. There is no pericardial effusion. The central airways are patent. No pulmonary mass or consolidation. No pleural effusion is observed. There is no pneumothorax. The liver, spleen, pancreas, and adrenal glands are unremarkable. Cholecystectomy. The kidneys are unremarkable. There is no significant mesenteric or retroperitoneal adenopathy identified. There is no evidence of free intraperitoneal fluid or pneumoperitoneum. Visualized portions of the bowel are grossly unremarkable. Mild aortoiliac atherosclerotic disease. 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 Bladder is decompressed by Pulido catheter. Hysterectomy. 2 cm left adnexal cyst, likely benign. There is no significant pelvic ascites. No significant iliac or inguinal adenopathy is identified. Degenerative changes spine. IMPRESSION: 1. Mild burden pulmonary thromboembolic disease involving left lower lobe basilar subsegmental branches. 2. No acute intra-abdominal findings. No pulmonary mass or consolidation. FOR INTERNAL CODING PURPOSES Heart Score C/O Chest Pain: No Risk Factors: Risk Factors: DM, Current or recent (<one month) smoker, HTN, HLP, family history of CAD, obesity. Risk Scores: Risk Factors: DM, Current or recent (<one month) smoker, HTN, HLP, family history of CAD, obesity. Course & Med Decision Making Course & Med Decision Making Patient is a 80-year-old female, with A. fib on Eliquis who presents with hematemesis and melena Vital signs notable for sinus tachycardia and borderline soft blood pressure, probably hypotensive for her as she is usually hypertensive. Placed on the monitor with 2 peripheral IVs placed. Started on IV fluid resuscitation. Started on IV Protonix. Given Zofran. Given fentanyl for pain. Labs notable for microcytic anemia, JASIEL and elevated BUN. Given a unit of blood given the fact that his acute bleeding, with a hemoglobin of already almost 10 and a cardiac patient. No [facility]/PCC available for reversal. CT did show tiny subsegmental pulmonary embolism but given bleeding no anticoagulation at this time and patient is already on Eliquis. Maury all findings with patient and advised admission to [facility] for continued evaluation and treatment of her upper GI bleed and anemia with GI consult. Patient grateful, verbalized understanding and agreed with plan of transfer and admission to [facility]. [] Dragon Disclaimer Dragon Disclaimer This electronic medical record was generated, in whole or in part, using a voice recognition dictation system. Departure Departure: Impression: Primary Impression: Upper GI hemorrhage Additional Impressions: Microcytic anemia JASIEL (acute kidney injury) Elevated BUN Disposition: 02 SHORT TERM HOSPITAL Condition: STABLE Referrals: SO VICKERS MD (PCP) Problem Qualifiers ZACK JOHNSON MD May 02, 2021 21:16
--- NOTE | 2021-05-02 21:21 | EKG ---
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
[2021-05-02 21:42] LABS: HEMATOCRIT 35.2 % (36.0-47.0); HEMOGLOBIN 10.4 g/dL (12.0-15.5); RED BLOOD COUNT 5.14 x10^6/uL (3.50-5.40); WHITE BLOOD COUNT 11.9 x10^3/uL (4.0-11.0)
[2021-05-02 21:56] LABS: CALCIUM 9.4 mg/dL (8.5-10.1); CREATININE 1.4 mg/dL (0.6-1.0); GFR 36.3; POTASSIUM 4.9 mmol/L (3.5-5.1)
[2021-05-02] MEDS: PANTOPRAZOLE IV 40 MG VIAL. IVP ONE (22:04)
[2021-05-02] MEDS: IV RINGERS SOLUTION,LACTATED 1,000 ML IV ONE (22:04)
[2021-05-02] MEDS: ONDANSETRON PF 4 MG/2 ML VIAL. IVP ONE (22:05)
[2021-05-02 22:07] LABS: ALBUMIN 3.4 g/dL (3.4-5.0); ALBUMIN/GLOBULIN RATIO 0.7 (1.0-1.7); TOTAL BILIRUBIN 0.7 mg/dL (0.2-1.0); TOTAL PROTEIN 8.3 g/dL (6.4-8.2)
[2021-05-02 22:20] LABS: DIG < 0.2 ng/dL (0.9-2.0)
--- NOTE | 2021-05-02 23:21 | RAD ---
CT CHEST+ABD+PELVIS W Clinical Indication: Hematemesis, hematochezia COMPARISON: None TECHNIQUE: Multiple contiguous axial images were obtained throughout the chest, abdomen, and pelvis with the use of IV contrast. Axial images were reformatted into coronal and sagittal planes. 75 mL Omnipaque 300 was administered. One or more of the following dose reduction techniques were utilized: Automated exp osure control (AEC), Adjustment of mA and/or kV according to patient size, Use of iterative reconstru ction technique such as ASiR, CT scan done according to ALARA and image gently/image wisely. Findings: The thyroid is symmetric. There is no axillary, mediastinal, or hilar adenopathy. Mild burden pulmonary thromboembolic disease involving left lower lobe basilar subsegmental branches. Atherosclerosis of the thoracic aorta. Cardiomegaly. Coronary artery atherosclerotic disease. There is no pericardial effusion. The central airways are patent. No pulmonary mass or consolidation. No pleural effusion is observed. There is no pneumothorax. The liver, spleen, pancreas, and adrenal glands are unremarkable. Cholecystectomy. The kidneys are un remarkable. There is no significant mesenteric or retroperitoneal adenopathy identified. There is n o evidence of free intraperitoneal fluid or pneumoperitoneum. Visualized portions of the bowel are g rossly unremarkable. Mild aortoiliac atherosclerotic disease. Two 1 cm peripherally calcified aneurys ms of the distal splenic artery. Bladder is decompressed by Pulido catheter. Hysterectomy. 2 cm left adnexal cyst, likely benign. There is no significant pelvic ascites. No significant iliac or inguinal adenopathy is identified. Degenerative changes spine. IMPRESSION: 1. Mild burden pulmonary thromboembolic disease involving left lower lobe basilar subsegmental branch es. 2. No acute intra-abdominal findings. No pulmonary mass or consolidation. FOR INTERNAL CODING PURPOSES Critical result: Findings discussed with Dr. Gordillo at 05/02/2021 11:17 PM. RESULT CODE: (C) Electronically signed by: Cristian June MD (05/02/2021 11:18 PM) [facility]
[2021-05-03] MEDS: IOHEXOL 300 MG/ML 75 ML VIAL. IV ONE (00:01)
[2021-05-03 01:27] LABS: BILIRUBIN,URINE SMALL (NEG); CLARITY,URINE HAZY; COLOR,URINE YELLOW; GLUCOSE,URINE NEG (NEG); NITRITE,URINE NEG (NEG); UROBILINOGEN,URINE 0.2 mg/dL (0.2 mg/dL)
[2021-05-03 01:30] LABS: BACTERIA,URINE MANY /HPF (0-FEW); RBC,URINE OCC /HPF (0-2); SQUAMOUS EPITHELIAL CELL,UR FEW /LPF
[2021-05-03 01:52] VITALS: BP 125/68
== END 2021-05-03 01:52 | disposition short-term general hospital (02) ==
LOC: ER 20:56
DX: K92.2 Gastrointestinal hemorrhage, unspecified (principal); D50.9 Iron deficiency anemia, unspecified; N17.9 Acute kidney failure, unspecified; R79.89 Other specified abnormal findings of blood chemistry; I11.0 Hypertensive heart disease with heart failure; I50.9 Heart failure, unspecified; K21.9 Gastro-esophageal reflux disease without esophagitis; E78.5 Hyperlipidemia, unspecified; Z90.710 Acquired absence of both cervix and uterus; Z88.0 Allergy status to penicillin; Z88.6 Allergy status to analgesic agent
CPT/HCPCS: 36415; 71260; 74177; 80053; 80162; 81001; 82803; 83605; 84484; 85027; 85610; 85730; 86850; 86900; 86901; 87086; 93005; 96361; 96374; 96375; 99285; C9113; J1956; J2405; J3010; J7120; Q9967; 86920

== ENCOUNTER 2022-03-21 10:56 | Inpatient (IN) | payer MEDICARE ==
[~2022-03-21] VITALS: Ht 162.6 cm; Wt 81.0 kg
[~2022-03-21 10:56] MED LIST changes: +APIX5TAB3 PO; +ASPI-630 PO; +CALC-56 PO; +CLIN-95 PO; -CLIN300C9 PO; +DIGO125T3 PO; -DULO60CA6 PO; +DULO60CA7 PO; -FENO134C PO; +FENO134C21 PO; +FURO80TA3 PO; +MELA3TAB4 PO; +MELA3TAB43 PO; +MELA5CAP PO; +METO25TA4 PO; +ONDA-84 PO; +OXYB-36 PO; +OXYC10TA46 PO; +PANT40TA6 PO; +POTA-121 PO; +SERT-268 PO; +SIMV80TA PO; +[UNRECOGNIZED DRUG - CODE] TP
--- NOTE | 2022-03-21 11:23 | PHYS DOC ---
Past History Past Medical History: A-Fib, Anxiety, Arthritis, CAD, CHF, Depression, Fibromyalgia, GERD, High Cholesterol, Hypertension, UTI, Other Additional Past Medical Histor: ULCERATIVE COLITIS Past Surgical History: Cholecystectomy, Hysterectomy, Other Additional Past Surgical Histo: HERNIA Alcohol Use: None Drug Use: None General Adult EDM: Chief Complaint: MEDICAL CLEARANCE HPI: HPI: 81-year-old female presents for medical clearance of behavioral health admission. The patient was reported to be throwing food, being uncooperative, a nd making threats at her nursing facility. When I asked the patient if she has any pain or medical complaints she states that she does not. No reported fever or chills. Review of Systems: Review of Systems: Constitutional: Denies fever or chills Eyes: Denies change in visual acuity HENT: Denies nasal congestion or sore throat Respiratory: Denies cough or shortness of breath Cardiovascular: Denies chest pain or edema GI: Denies abdominal pain, nausea, vomiting, bloody stools or diarrhea : Denies dysuria Musculoskeletal: Denies back pain or joint pain Integument: Denies rash Neurologic: Denies headache, focal weakness or sensory changes Endocrine: Denies polyuria or polydipsia Lymphatic: Denies swollen glands Psychiatric: Denies depression or anxiety Allergies: Allergies: Allergies Coded Allergies Type Severity Reaction Last Updated Verified Penicillins Allergy Intermediate 04/12/21 Yes acetaminophen Allergy Intermediate 04/12/21 Yes tetanus toxoid, adsorbed Allergy Intermediate 04/12/21 Yes Physical Exam: PE: Constitutional: Well developed, well nourished, obese, no acute distress, non- toxic appearance. [] HENT: Normocephalic, atraumatic, bilateral external ears normal, oropharynx moist, no oral exudates, nose normal. [] Eyes: PERRLA, EOMI, conjunctiva normal, no discharge. [] Neck: Normal range of motion, no tenderness, supple, no stridor. [] Cardiovascular: Heart rate irregular rhythm, no murmur [] Lungs & Thorax: Bilateral breath sounds clear to auscultation [] Abdomen: Bowel sounds normal, soft, no tenderness, no masses, no pulsatile masses. [] Skin: Warm, dry, no erythema, no rash. [] Back: No tenderness, no CVA tenderness. [] Extremities: No tenderness, no cyanosis, no clubbing, ROM intact, no edema. [] Neurologic: Alert and oriented X 3, normal motor function, normal sensory function, no focal deficits noted. [] Psychologic: Affect flat, judgement normal, mood normal. [] EKG: EKG: [] Radiology/Procedures: Radiology/Procedures: [] Heart Score: C/O Chest Pain: N/A Risk Factors: Risk Factors: DM, Current or recent (<one month) smoker, HTN, HLP, family history of CAD, obesity. Risk Scores: Score 0 - 3: 2.5% MACE over next 6 weeks - Discharge Home Score 4 - 6: 20.3% MACE over next 6 weeks - Admit for Clinical Observation Score 7 - 10: 72.7% MACE over next 6 weeks - Early Invasive Strategies Course & Med Decision Making: Course & Med Decision Making Pertinent Labs and Imaging studies reviewed. (See chart for details) The patient has urinary tract infection. She has penicillin allergy so I will treat her with levofloxacin 750 mg p.o. Given her creatinine clearance, she will only need this dosing every 48 hours. This can be managed on the floor. She is medically stable for behavioral admission at this time. [] Dragon Disclaimer: Dragon Disclaimer: This electronic medical record was generated, in whole or in part, using a voice recognition dictation system. Departure Departure: Impression: Primary Impression: UTI (urinary tract infection) Additional Impression: Medical clearance for psychiatric admission Disposition: HOME / SELF CARE / HOMELESS Condition: STABLE Referrals: SO VICKERS MD (PCP) MADIE OLIVEIRA DO March 21, 2022 11:23
[2022-03-21 11:45] LABS: BASO % 1 % (0-3); EOS # 0.1 x10^3/uL (0.0-0.7); EOS % 2 % (0-3); HEMATOCRIT 34.7 % (36.0-47.0); HEMOGLOBIN 11.1 g/dL (12.0-15.5); LYMPH # 1.2 x10^3/uL (1.0-4.8); LYMPH % 19 % (24-48); MEAN CORPUSCULAR HEMOGLOBIN 25 pg (25-35); MEAN CORPUSCULAR HGB CONC 32 g/dL (31-37); MEAN CORPUSCULAR VOLUME 77 fL (79-100); MONO # 0.7 x10^3/uL (0.0-1.1); MONO % 12 % (0-9); NEUT # 4.3 x10^3uL (1.8-7.7); NEUT % 67 % (31-73); PLATELET COUNT 286 x10^3/uL (140-400); RED BLOOD COUNT 4.52 x10^6/uL (3.50-5.40); WHITE BLOOD COUNT 6.4 x10^3/uL (4.0-11.0)
[2022-03-21 11:59] LABS: CALCIUM 8.5 mg/dL (8.5-10.1); CREATININE 1.4 mg/dL (0.6-1.0); GFR 36.2; POTASSIUM 3.9 mmol/L (3.5-5.1)
[2022-03-21 12:05] LABS: ALBUMIN 2.5 g/dL (3.4-5.0); ALBUMIN/GLOBULIN RATIO 0.5 (1.0-1.7); TOTAL BILIRUBIN 0.7 mg/dL (0.2-1.0); TOTAL PROTEIN 7.2 g/dL (6.4-8.2)
[2022-03-21 12:15] LABS: BACTERIA,URINE MOD /HPF (0-FEW); CLARITY,URINE HAZY; COLOR,URINE YELLOW; GLUCOSE,URINE NEG (NEG); NITRITE,URINE NEG (NEG); SQUAMOUS EPITHELIAL CELL,UR MANY /LPF; UROBILINOGEN,URINE 0.2 mg/dL (0.2 mg/dL)
[2022-03-21] MEDS ORDERED: levoFLOXacin 250 MG TABLET PO ONE (12:45)
[2022-03-21] MEDS ORDERED: oxyCODONE ER 10 MG TAB.ER.12H PO PRN (14:15)
[2022-03-21] MEDS ORDERED: HALO2ORA3 PO ×2 (14:29)
[2022-03-21] MEDS ORDERED: NYST15PO9 TP (14:29)
[2022-03-21] MEDS ORDERED: DIVA125C2 PO (14:29)
[2022-03-21] MEDS ORDERED: LACT1CAP21 PO (14:29)
[2022-03-21] MEDS ORDERED: NYSTATIN TOPICAL POWDER 15GM BOTTLE. TP PRN (14:30)
[2022-03-21] MEDS ORDERED: HALOPERIDOL 10 MG/5 ML ORAL.CONC. PO PRN (14:30)
[2022-03-21] MEDS ORDERED: MAGNESIUM HYDROXIDE 2,400 MG/30 ML ORAL.SUSP. PO PRN (14:45)
[2022-03-21] MEDS ORDERED: METHYL SALICYLATE/MENTHOL TOPICAL OINTMENT 57GM TUBE. TP PRN (14:45)
[2022-03-21] MEDS ORDERED: ONDANSETRON ODT 4 MG TAB.RAPDIS PO PRN (15:15)
[2022-03-21 15:20] VITALS: BP 149/99
[2022-03-21] MEDS: CARVEDILOL 12.5 MG TABLET PO SCH (17:00)
[2022-03-21] MEDS ORDERED: QUEtiapine 25 MG TABLET. PO SCH (21:00)
[2022-03-21] MEDS: HALOPERIDOL 10 MG/5 ML ORAL.CONC. PO SCH (21:38)
[2022-03-21] MEDS: MELATONIN 3 MG TABLET PO SCH (21:40)
[2022-03-21] MEDS: traZODone 50 MG TABLET. PO SCH (21:40)
[2022-03-21] MEDS: DIVALPROEX 125 MG CAP.SPRINK PO SCH (21:40)
[2022-03-21] MEDS: LACTOBACILLUS RHAMNOSUS GG 1 CAPSULE. PO SCH (21:40)
[2022-03-21] MEDS: PANTOPRAZOLE 40 MG TABLET. PO SCH (21:40)
[2022-03-21] MEDS ORDERED: QUEtiapine 25 MG TABLET. PO PRN (22:15)
[2022-03-22] MEDS: LEVOTHYROXINE 150 MCG TABLET PO SCH (06:04)
[2022-03-22 06:16] VITALS: BP 126/74
--- NOTE | 2022-03-22 06:47 | PSYEV ---
DATE OF SERVICE: 03/21/2022 REASON FOR ADMISSION: This 81-year-old female was readmitted to [facility] from [facility] in [place]. The patient was sent here because of behavior problems, unable to manage, also threatening to kill the staff. CHIEF COMPLAINT: "I am feeling cold. "I am not feeling well. My stomach is hurting." HISTORY OF PRESENT ILLNESS: The patient apparently has been exhibiting behavior problems including aggressive towards the staff, moving tables, threatening to kill staff and also moving desk, throwing foods and the patient also difficult to redirect. The patient apparently sent to the hospital in 01/2022 after she had a fall, but no injuries. At that time, they also discussed to change her status to the hospice care. The patient apparently has been paranoid, suspicious, increased anxiety in the past. The patient states she is not sleeping well, appetite decreased. The patient did not admit to having any suicidal thoughts or plans, but admits to feeling depressed, somewhat tearful during the assessment. PAST PSYCHIATRIC HISTORY: The patient was hospitalized at [facility] in 01/2015. At that time, she exhibited similar symptoms and also threatening to kill herself. The patient has been in treatment. She has been on psychotropic drugs. She also has a history of repeated falls. The patient was on Celexa and Zoloft in the past. PAST MEDICAL HISTORY: The patient has atrial fibrillation, generalized weakness, osteoarthritis, hyperlipidemia, osteoporosis, hypertension, ulcerative colitis, hypothyroidism, obesity, history of pulmonary embolism, restless leg syndrome. 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 Also, history of obesity. ALLERGIES: PENICILLIN, TYLENOL, AND TETANUS TOXOID. The patient unable to give any information with regard to her current medications. FAMILY HISTORY: Noncontributory. PSYCHOSOCIAL HISTORY: The patient is confused, unable to give much information. The patient denies of any substance abuse, alcohol or tobacco use. The patient states she used to work with her . Otherwise, the patient unable to give much information because of her cognitive deficits. The patient denied of any physical, sexual, or elder abuse. MENTAL STATUS EXAMINATION: The patient appeared to be of her stated age, highly emotional, tearful, seems to be in distress. Complaining of abdominal pain, also difficult to move around the bed. The patient's speech clear, monotone with the decreased rate and rhythm. Her affect and mood showed patient appears depressed, also confused, had difficulty orienting herself. The patient did not know she was in the hospital. The patient did not know the date except she knew the month was April and she identifies herself as 23 years old. The patient currently not exhibiting any psychotic symptoms. The patient is having difficulty with her communication. She is disoriented to her surroundings. Her memory is impaired for both past and present. Judgment impaired. Insight limited. REVIEW OF SYSTEMS: The patient apparently has difficulty with her gait. History of multiple falls. The patient currently complaining of abdominal pain. The patient denies of any other GI problems. No difficulty breathing. She is able to hear and see. DIAGNOSTIC IMPRESSION: AXIS I: 1. Major depressive disorder, moderate to severe. 2. Cognitive disorder, unspecified. 3. Anxiety disorder, unspecified. AXIS II: None. AXIS III: As above. INITIAL TREATMENT PLAN: The patient will be under observation. We will obtain the patient's current medications that she was on prior to coming here and also rn social work will make contact with the family to get more information. The patient is here mainly for evaluation and treatment. LENGTH OF STAY: 7-[address]: Sin TID: [id number]
[2022-03-22 08:05] LABS: BASO % 1 % (0-3); EOS # 0.1 x10^3/uL (0.0-0.7); EOS % 2 % (0-3); HEMATOCRIT 32.6 % (36.0-47.0); HEMOGLOBIN 10.2 g/dL (12.0-15.5); LYMPH # 1.3 x10^3/uL (1.0-4.8); LYMPH % 24 % (24-48); MEAN CORPUSCULAR HEMOGLOBIN 24 pg (25-35); MEAN CORPUSCULAR HGB CONC 31 g/dL (31-37); MEAN CORPUSCULAR VOLUME 77 fL (79-100); MONO # 0.7 x10^3/uL (0.0-1.1); MONO % 13 % (0-9); NEUT # 3.2 x10^3uL (1.8-7.7); NEUT % 61 % (31-73); PLATELET COUNT 247 x10^3/uL (140-400); RED BLOOD COUNT 4.26 x10^6/uL (3.50-5.40); RED CELL DISTRIBUTION WIDTH 27.1 % (11.5-14.5); WHITE BLOOD COUNT 5.3 x10^3/uL (4.0-11.0)
[2022-03-22 08:29] LABS: ALBUMIN 2.1 g/dL (3.4-5.0); ALBUMIN/GLOBULIN RATIO 0.5 (1.0-1.7); ALK PHOS 79 U/L (46-116); ALT (SGPT) 10 U/L (14-59); ANION GAP 7 (6-14); AST (SGOT) 9 U/L (15-37); BLOOD UREA NITROGEN 22 mg/dL (7-20); BUN/CREATININE RATIO 17 (6-20); CALCIUM 8.4 mg/dL (8.5-10.1); CARBON DIOXIDE 29 mmol/L (21-32); CHLORIDE 107 mmol/L (98-107); CREATININE 1.3 mg/dL (0.6-1.0); GFR 39.4; GLUCOSE 99 mg/dL (70-99); MAGNESIUM 1.9 mg/dL (1.8-2.4); POTASSIUM 3.5 mmol/L (3.5-5.1); SODIUM 143 mmol/L (136-145); TOTAL BILIRUBIN 0.4 mg/dL (0.2-1.0); TOTAL PROTEIN 6.3 g/dL (6.4-8.2)
[2022-03-22 08:34] LABS: VAL ACID 9 mcg/mL (50-100)
[2022-03-22] MEDS: HALOPERIDOL 10 MG/5 ML ORAL.CONC. PO SCH ×2 (09:10→18:07)
[2022-03-22] MEDS: CARVEDILOL 12.5 MG TABLET PO SCH ×2 (09:11→18:09)
[2022-03-22] MEDS: LACTOBACILLUS RHAMNOSUS GG 1 CAPSULE. PO SCH ×2 (09:11→18:07)
[2022-03-22] MEDS: DIVALPROEX 125 MG CAP.SPRINK PO SCH ×2 (09:11→18:07)
[2022-03-22] MEDS: PANTOPRAZOLE 40 MG TABLET. PO SCH ×2 (09:11→18:07)
[2022-03-22] MEDS: SERTRALINE 50 MG TABLET. PO SCH (09:12)
[2022-03-22] MEDS: LORazepam 1 MG TABLET PO PRN (11:04)
[2022-03-22 11:15] LABS: CHOLESTEROL/HDL RATIO 4.4; THYROID STIM HORMONE (TSH) 9.411 uIU/mL (0.358-3.740)
[2022-03-22 12:44] LABS: ANISOCYTOSIS MARKED; HYPOCHROMIA SLIGHT
[2022-03-22 12:45] LABS: PLT ESTIMATE ADEQUATE (ADEQUATE)
[2022-03-22] MEDS: traMADol 50 MG TABLET PO PRN (13:05)
[2022-03-22 15:45] VITALS: BP 130/71
[2022-03-22] MEDS: traZODone 50 MG TABLET. PO SCH (18:09)
[2022-03-22] MEDS: MELATONIN 3 MG TABLET PO SCH (18:09)
--- NOTE | 2022-03-23 00:19 | CONS ---
DATE OF CONSULTATION: 03/22/2022 ATTENDING PHYSICIAN: Dr. Vazquez. We are asked to see the patient for medical consultation. HISTORY OF PRESENT ILLNESS: The patient is an 81-year-old female well known to me from several admissions on the medical floor. Her , Albert, and I have been in contact in the past. He could not take care of her. She has been at the assisted in [place], [place] for the last several months. She was actually doing better from a medical standpoint. The swelling and excoriations in her legs are much improved. She is sent here because of behavioral issues. She has been very agitated, noncompliant, resistant to medical care, yelling and being verbally abusive, combative towards the staff, threatening to kill them. She is nonambulatory. Luckily, she gets around in a wheelchair. She has profound dementia. PAST MEDICAL HISTORY: Significant for paroxysmal atrial fibrillation, degenerative arthritis, known coronary artery disease, congestive heart failure, fibromyalgia, gastroesophageal reflux disease, hyperlipidemia, hypertension, frequent UTIs and a remote history of ulcerative colitis, whether this is legitimate is debatable. PAST SURGICAL HISTORY: Includes abdominal hernia repair, hysterectomy, and a cholecystectomy. CURRENT MEDICATIONS: Reviewed. She was on scheduled Coreg 25 mg b.i.d., Depakote, Haldol, lactobacillus, Synthroid 200 mcg daily, lorazepam, melatonin, nystatin, oxycodone, Protonix, Seroquel, Zoloft, tramadol, and trazodone. ALLERGIES: SHE HAS SEVERAL ALLERGIES INCLUDING THE PENICILLIN, TYLENOL, PEANUTS, TETANUS TOXOID, AND VARIOUS OTHER NONPHARMACOLOGIC ITEMS. FAMILY HISTORY: Unobtainable. REVIEW OF SYSTEMS: Unobtainable, but in getting the social history, she is actually doing better from a medical standpoint since she has been in a controlled environment with adequate nursing care. Her simply could not care for her at home prior to the 2 previous medical admissions. PHYSICAL EXAMINATION: GENERAL: When I saw her, this is an elderly female who is confused. INITIAL VITAL SIGNS: Showed a blood pressure 126/74 mmHg. Her temperature is 97.0 degrees Fahrenheit. Her pulse is 90 and regular, and her oxygen saturation is 96% on room air. HEENT: Head is without trauma. Pupils are reactive. Sclerae nonicteric. Oropharynx is clear. No lesions. NECK: Supple. No stridor. CARDIOVASCULAR: Showed regular heart tones. No gallops. LUNGS: Otherwise clear. CARDIOVASCULAR: As noted. ABDOMEN: Soft. No guarding or rebound tenderness. EXTREMITIES: Actually much improved. The swelling is down. She has trace edema. There is hemosiderin deposit but no open wounds. There is a significant excoriation in the past, which has since been healed with adequate nursing care. NEUROLOGIC FUNCTION: The patient is confused and not oriented. PERTINENT LABORATORY STUDIES: The hemoglobin is 11.1 g/dL with a white count of 6400. Her chemistry panel shows sodium 140 mEq, potassium 3.9, creatinine is 1.4 mg/dL, which is her baseline. Nonfasting blood sugar 136. Transaminases all within normal range. ASSESSMENT: 1. This 81-year-old female from a assisted has behavioral issues related to her agitation. 2. Paroxysmal atrial fibrillation. 3. Essential hypertension. 4. Hypothyroidism, on replacement. 5. Significant stasis dermatitis in the past due to the lack of nursing care. She is actually better from a assisted. RECOMMENDATIONS: 1. The patient is well known to me. She is actually stable from a medical standpoint. 2. I reviewed her home medications. We should continue these as prescribed. 3. She remains a DNR per advanced directives. We will facilitate these advanced directives. 4. She is stable. We should gladly follow along during her stay on the Senior Behavior Unit. Thank you again for asking me to see this patient. JACKELINE DR: Shannan TID: [id number] CC: REYNA VAZQUEZ MD
[2022-03-23 05:37] LABS: THYROXINE 5.6 ug/dL (4.5-12.0)
[2022-03-23] MEDS: LEVOTHYROXINE 150 MCG TABLET PO SCH (05:51)
[2022-03-23 06:01] VITALS: BP 139/81
[2022-03-23] MEDS: CARVEDILOL 12.5 MG TABLET PO SCH ×2 (08:06→17:00)
[2022-03-23] MEDS: HALOPERIDOL 10 MG/5 ML ORAL.CONC. PO SCH ×3 (08:06→22:52)
[2022-03-23] MEDS: LACTOBACILLUS RHAMNOSUS GG 1 CAPSULE. PO SCH ×3 (08:07→22:52)
[2022-03-23] MEDS: DIVALPROEX 125 MG CAP.SPRINK PO SCH ×3 (08:07→22:52)
[2022-03-23] MEDS: PANTOPRAZOLE 40 MG TABLET. PO SCH ×3 (08:07→22:52)
[2022-03-23] MEDS: SERTRALINE 50 MG TABLET. PO SCH (08:07)
[2022-03-23] MEDS: traMADol 50 MG TABLET PO PRN (10:36)
[2022-03-23 16:11] VITALS: BP 151/92
[2022-03-23 18:54] LABS: BACTERIA,URINE MOD /HPF (0-FEW); CLARITY,URINE CLOUDY; COLOR,URINE YELLOW; GLUCOSE,URINE NEG (NEG); NITRITE,URINE NEG (NEG); SQUAMOUS EPITHELIAL CELL,UR FEW /LPF; UROBILINOGEN,URINE 0.2 mg/dL (0.2 mg/dL); WBC,URINE OCC /HPF (0-4)
[2022-03-23 18:55] LABS: YEAST,URINE PRESENT /HPF
[2022-03-23] MEDS: traZODone 50 MG TABLET. PO SCH ×2 (20:34→22:52)
[2022-03-23] MEDS: MELATONIN 3 MG TABLET PO SCH ×2 (20:35→22:52)
--- NOTE | 2022-03-24 00:21 | PN ---
DATE: 03/23/2022 SUBJECTIVE: The patient was seen today, met with the staff. Chart was reviewed. I am covering for Dr. Vergara. Staff reports the patient has been drowsy, stayed in bed most of the time. OBSERVATION: VITAL SIGNS: Temperature 97.3, blood pressure 139/81, pulse 77, respirations 18, O2 sat 97%. Slept about 10 hours last night. The patient's appetite is fair. LABORATORY DATA: Reviewed. Hemoglobin 10.2, HCT 32.6, hemoglobin A1c 6, BUN 22, LDL cholesterol 103, HDL 36. TSH 9.4. The patient's urinalysis was within normal limits. CURRENT MEDICATIONS: Zoloft 50 mg daily, levothyroxine 150 mg daily, Seroquel 25 mg at bedtime p.r.n. Haldol lactate 1 mg twice a day, Depakote 125 mg twice a day, trazodone 50 mg at night, melatonin 6 mg at night. She is also on Haldol 1 mg q. 6 hours p.r.n. She is also on tramadol and oxycodone p.r.n. for pain. The patient is also on lorazepam 1 mg q. 6 hours p.r.n. and these are the medications she was taking prior to coming here. ASSESSMENT: 1. Major depressive disorder, moderate to severe. 2. Cognitive disorder, unspecified. 3. Anxiety disorder, unspecified. PLAN: To continue with the treatment. LENGTH OF STAY: 7-[address]: Sin TID: [id number]
[2022-03-24] MEDS: LEVOTHYROXINE 150 MCG TABLET PO SCH (05:52)
[2022-03-24 06:16] VITALS: BP 154/81
[2022-03-24] MEDS: HALOPERIDOL 10 MG/5 ML ORAL.CONC. PO SCH ×2 (08:29→20:57)
[2022-03-24] MEDS: PANTOPRAZOLE 40 MG TABLET. PO SCH ×2 (08:29→20:54)
[2022-03-24] MEDS: DIVALPROEX 125 MG CAP.SPRINK PO SCH ×2 (08:29→20:54)
[2022-03-24] MEDS: CARVEDILOL 12.5 MG TABLET PO SCH ×3 (08:29→17:34)
[2022-03-24] MEDS: LACTOBACILLUS RHAMNOSUS GG 1 CAPSULE. PO SCH ×2 (08:30→20:54)
[2022-03-24] MEDS: SERTRALINE 50 MG TABLET. PO SCH (08:30)
--- NOTE | 2022-03-24 14:37 | TX PLAN ---
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 She used to be able to complete some of her own cares and do her own transfers from her motorized wheelchair at home. She more recently has not been able to do that. Pt acknowledges her behaviors at the facility. Per Maddie at [facility] pt also is aggressive as she will scratch staff arms and bite. Additional Admission Comments: Per intake record, pt is noncompliant, resistive to meds & cares, yelling, socially disruptive, combative towards staff, pulling items off nursing desk, throwing food, moving tables, threatening to kill staff. Problems Active Problems: Agitation, refusal to take medications, instructs staff out of room, confusion Inactive Problems: None noted at this time. Pt Strengths/Limitations Ability for Lander: Poor Cognitive Functioning/Ability: Poor Communication Skills/Ability: Fair Financial Resources: Good Insight/Judgement: Poor Intellectual Ability: Good Physical Health: Poor Social Skills: Fair Stability in Family: Good Stability in School/Work: Good Verbal Skills: Fair Discharge Criteria Discharge Criteria: No need for close observ., Able to meet health needs, Adequate arrangements @DC, Verbal commit med comply, Improved behavior, Improved mood/thought Other Discharge Comments: None at this time. Preliminary Discharge Plan Preliminary DC Plan: Current Living Arrange. Special Precautions Special Precautions: Agitation/Assault Fall Risk: High Other Precautions (specify): Pt has been able to assist with transfers in the past, but has had falls. Initial D/C Plan Pt will return to [facility] once stable. Identified Discharge Needs: None at this time. Currently Utilized Resources Currently Utilized Resources/P: /DPOA-[facility] Edge PCP-Dr. Marroquin Psychiatrist-Dr. Vergara Facility-[facility] Social Service Designee-Maddie Pulido Community Resources: None at this time. Identified Problems/Hx/Goals Objectives/Short-Term Goals Short Term Goals: Control abnormal behavior, Dec. Aggression, Dec. Anxiety/Panic, Dec. Outbursts, Dec. Symp. Depression, Improved Social Skills, Medication Stabilization, Monitor Med Effects, Prevent Deterioration, Promote Coping Skill Short Term Goals in Patient's: To have less agitation, eliminate aggression and combativeness, improve cooperation and taking medications. Interventions/Frequency Staff Interventions/Frequency&: Psychiatry to assess pt three times per week for medication management. Nursing to assess behaviors, monitor medications, and complete 15 minute checks daily. Social work to see pt at least two times weekly to aid in return to placement. Activities to encourage pt to participate in group activities daily. History Vocational History: Pt worked for a short time at [employer] then at [employer]. Education: Pt graduated from [employer]. She did not attend college, but did receive some education through her job at [employer] to assist her in her position. Community Follow-up PCP Psychiatry Community Provider/Family Inpu: Pt /DPOA, Albert, was consulted for information as pt could only answer limited questions. Albert is available for further information should it be needed. Treatment Plan Explained Patient/Granulator Operator had this treatment plan explained to him/her as indicated by the signature below and has been given the opportunity to ask questions and make suggestions: Date: Patient/Granulator Operator Signature: VON PRETTY March 24, 2022 14:37
[2022-03-24] MEDS: MAG HYDROX/AL HYDROX/SIMETH 30 ML ORAL.SUSP PO PRN (15:27)
[2022-03-24 16:09] VITALS: BP 157/98
[2022-03-24] MEDS: traZODone 50 MG TABLET. PO SCH (20:54)
[2022-03-24] MEDS: MELATONIN 3 MG TABLET PO SCH (20:55)
[2022-03-24] MEDS: NYSTATIN TOPICAL POWDER 15GM BOTTLE. TP SCH (21:00)
[2022-03-24] MEDS: traMADol 50 MG TABLET PO PRN (21:06)
[2022-03-25 06:12] VITALS: BP 138/83
[2022-03-25] MEDS: LEVOTHYROXINE 150 MCG TABLET PO SCH (06:27)
--- NOTE | 2022-03-25 06:59 | PN ---
DATE: 03/24/2022 SUBJECTIVE: The patient was seen today, met with the staff. Chart was reviewed. I am covering for Dr. Vergara. Staff reports that she is delusional, uncooperative, refusing her medications at times. Also told the staff "God told her not to take her medications." The patient is also confused; also told the staff, when they found her removing her clothes, "God took my clothes off." The patient is also refusing assessment, refusing to drink and also getting upset with the nursing staff. OBSERVATION: VITAL SIGNS: Temperature 97.3, blood pressure 157/98, pulse 98, respirations 18, O2 sat 96%. GENERAL: The patient is sleeping fair. CURRENT MEDICATIONS: Zoloft 50 mg daily, Seroquel 25 mg at bedtime p.r.n., Depakote 125 mg twice a day, trazodone 50 mg at night, melatonin 6 mg at night, Haldol lactate 1 mg every 6 hours p.r.n. The patient is also on oxycodone and lorazepam as p.r.n. LABORATORY DATA: The patient's lab reviewed. The patient's hemoglobin is 10.2. The patient's blood sugar was slightly high. ASSESSMENT: 1. Major depressive disorder, moderate to severe. 2. Cognitive disorder, unspecified. 3. Anxiety disorder, unspecified. PLAN: To continue treatment. LENGTH OF STAY: 7-[address]: Sin TID: [id number]
[2022-03-25] MEDS: HALOPERIDOL 10 MG/5 ML ORAL.CONC. PO SCH ×2 (07:59→20:21)
[2022-03-25] MEDS: PANTOPRAZOLE 40 MG TABLET. PO SCH ×2 (07:59→20:21)
[2022-03-25] MEDS: LACTOBACILLUS RHAMNOSUS GG 1 CAPSULE. PO SCH ×2 (08:00→20:21)
[2022-03-25] MEDS: SERTRALINE 50 MG TABLET. PO SCH (08:00)
[2022-03-25] MEDS: CARVEDILOL 12.5 MG TABLET PO SCH ×2 (08:00→17:00)
[2022-03-25] MEDS: DIVALPROEX 125 MG CAP.SPRINK PO SCH ×2 (08:00→20:21)
[2022-03-25] MEDS: NYSTATIN TOPICAL POWDER 15GM BOTTLE. TP SCH ×2 (08:56→20:21)
[2022-03-25 16:00] VITALS: BP 137/73
[2022-03-25] MEDS: MELATONIN 3 MG TABLET PO SCH (20:20)
[2022-03-25] MEDS: traZODone 50 MG TABLET. PO SCH (20:20)
[2022-03-25] MEDS: traMADol 50 MG TABLET PO PRN (20:25)
[2022-03-26] MEDS: LEVOTHYROXINE 150 MCG TABLET PO SCH (05:01)
[2022-03-26 06:12] VITALS: BP 143/76
[2022-03-26] MEDS: PANTOPRAZOLE 40 MG TABLET. PO SCH ×2 (07:46→20:51)
[2022-03-26] MEDS: DIVALPROEX 125 MG CAP.SPRINK PO SCH ×2 (07:46→20:49)
[2022-03-26] MEDS: CARVEDILOL 12.5 MG TABLET PO SCH ×2 (07:46→17:24)
[2022-03-26] MEDS: LACTOBACILLUS RHAMNOSUS GG 1 CAPSULE. PO SCH ×2 (07:47→20:49)
[2022-03-26] MEDS: SERTRALINE 50 MG TABLET. PO SCH (07:47)
[2022-03-26] MEDS: HALOPERIDOL 10 MG/5 ML ORAL.CONC. PO SCH ×2 (07:48→20:50)
[2022-03-26] MEDS: NYSTATIN TOPICAL POWDER 15GM BOTTLE. TP SCH ×2 (07:50→20:53)
--- NOTE | 2022-03-26 13:12 | PN ---
DATE: 03/25/2022 SUBJECTIVE: The patient was seen today, met with the staff. Chart was reviewed. I am covering for Dr. Vergara. Staff reports increased confusion, disorganized thinking, forgetful, but compliant, not exhibited any major behavior problems today. The patient constantly mentioning about her parents, she wanted to know, are they still alive. The patient also emotionally labile, at times tearful. Still complaining of problems with her stomach, having difficulty with her bowels. The patient is not able to walk. She is in a wheelchair. The patient is exhibiting increased confusion and fluctuating symptoms. The patient is also difficult to redirect at times. OBSERVATION: VITAL SIGNS: Temperature 97.4, blood pressure 137/73, pulse 70, respirations 18, O2 sat 97%. LABORATORY DATA: The patient's lab reviewed. The patient's hemoglobin is 10.2, MCV 77. The patient's hemoglobin A1c is 6.0, blood sugar 131. The patient's BUN is 22, creatinine 1.3. TSH is 9.4, LDL 103, HDL 36. The patient's urinalysis is within normal range. IMAGING: The patient had abdominal x-ray, KUB and it was within normal limits. CURRENT MEDICATIONS: Zoloft 50 mg daily, Seroquel 25 mg p.r.n. at night, Haldol lactate 1 mg twice a day, Depakote 125 mg twice a day, trazodone 50 mg at night, melatonin 6 mg at night and also Haldol lactate 1 mg every 6 hours p.r.n. The patient is also on lorazepam 1 mg every 6 hours p.r.n. The patient is not having any side effects. ASSESSMENT: 1. Major depressive disorder, moderate to severe. 2. Cognitive disorder, unspecified. 3. Anxiety disorder, unspecified. PLAN: To continue with the treatment. The patient continues to show fluctuating symptoms. On admission, she focused mainly on depression, crying spells, currently much calmer, but also having significant cognitive deficits, constantly talking about her parents. The patient is also dependent on staff for ADLs. The patient is also a fall risk. The patient's Zoloft to be increased to 75 mg daily. LENGTH OF STAY: Five days. PRINCESS/CORI DR: PRINCESS/juan luis TID: [id number]
[2022-03-26] MEDS: CEPHALEXIN 250 MG CAPSULE PO SCH ×2 (14:00→20:51)
[2022-03-26 16:18] VITALS: BP 134/61
[2022-03-26] MEDS: traZODone 50 MG TABLET. PO SCH (20:49)
[2022-03-26] MEDS: MELATONIN 3 MG TABLET PO SCH (20:51)
[2022-03-26] MEDS ORDERED: LACTOBACILLUS RHAMNOSUS GG 1 CAPSULE. PO SCH (21:00)
[2022-03-27 06:13] VITALS: BP 140/95
[2022-03-27] MEDS: LEVOTHYROXINE 150 MCG TABLET PO SCH (06:22)
[2022-03-27] MEDS ORDERED: DIPHENOXYLATE/ATROPINE TABLET. PO PRN (06:30)
[2022-03-27] MEDS: CEPHALEXIN 250 MG CAPSULE PO SCH ×3 (07:31→20:25)
[2022-03-27] MEDS: DIVALPROEX 125 MG CAP.SPRINK PO SCH ×2 (07:31→20:24)
[2022-03-27] MEDS: LACTOBACILLUS RHAMNOSUS GG 1 CAPSULE. PO SCH ×2 (07:32→20:24)
[2022-03-27] MEDS: HALOPERIDOL 10 MG/5 ML ORAL.CONC. PO SCH ×2 (07:32→20:25)
[2022-03-27] MEDS: CARVEDILOL 12.5 MG TABLET PO SCH ×2 (07:32→16:02)
[2022-03-27] MEDS: SERTRALINE 50 MG TABLET. PO SCH (07:32)
[2022-03-27] MEDS: PANTOPRAZOLE 40 MG TABLET. PO SCH ×2 (07:32→20:25)
[2022-03-27] MEDS: NYSTATIN TOPICAL POWDER 15GM BOTTLE. TP SCH ×2 (07:33→20:26)
--- NOTE | 2022-03-27 10:07 | PN ---
DATE: 03/26/2022 SUBJECTIVE: The patient was seen today, met with the staff. Chart was reviewed and covering for Dr. Vergara. Staff reports that she is medication compliant, pleasant and cooperative. She is also being withdrawn, tends to be isolative, also having significant cognitive deficits, but no confusion. OBSERVATION: VITAL SIGNS: Temperature 97.8, blood pressure 132/57, pulse 90, respirations 22 and O2 sat 96%. GENERAL: Slept about 6 hours last night. The patient's appetite is fair. The patient's current weight 143 pounds. CURRENT MEDICATIONS: Zoloft 50 mg daily, Seroquel 25 mg p.r.n. at night, ____ lactate 1 mg every 6 hours p.r.n., Depakote 125 mg twice a day, trazodone 50 mg at night, melatonin 6 mg at night. She is also on lorazepam 1 mg every 6 hours p.r.n. She is not having any side effects. LABORATORY DATA: The patient's lab reviewed. ASSESSMENT: 1. Major depressive disorder, moderate to severe. 2. Cognitive disorder, unspecified. 3. Anxiety disorder, unspecified. PLAN: To continue treatment. LENGTH OF STAY: 5 to 7 days. CLAUDETTE/HECTOR DR: Sin TID: [id number]
[2022-03-27] MEDS: traMADol 50 MG TABLET PO PRN (14:39)
[2022-03-27 14:43] VITALS: BP 134/78
[2022-03-27 16:29] VITALS: BP 142/77
[2022-03-27] MEDS: traZODone 50 MG TABLET. PO SCH (20:25)
[2022-03-27] MEDS: MELATONIN 3 MG TABLET PO SCH (20:25)
--- NOTE | 2022-03-28 03:56 | PN ---
DATE: 03/27/2022 SUBJECTIVE: The patient was seen today, met with the staff. Chart was reviewed and covering for Dr. Vergara. Staff reports medication compliance, remains fixated and repetitive about 4 drinks, tends to be anxious and tense at times and at times hollering. OBSERVATION: VITAL SIGNS: Temperature 97.6, blood pressure 142/77, pulse 77, respirations 16, O2 sat 99%. GENERAL: Slept about 7 hours last night. The patient is much calmer. The patient is wanting to know when she will be discharged. CURRENT MEDICATIONS: Zoloft 50 mg daily, Seroquel 25 mg p.r.n. at night, Haldol lactate 1 mg q. 6 hours p.r.n., Depakote 125 mg twice a day, trazodone 50 mg at night, melatonin 6 mg at night. The patient is also on lorazepam 1 mg q. 6 hours p.r.n. The patient denies of any side effects. LABORATORY DATA: The patient's lab reviewed. ASSESSMENT: 1. Major depressive disorder, moderate to severe. 2. Cognitive disorder, unspecified. 3. Anxiety disorder, unspecified. PLAN: To continue with the treatment. LENGTH OF STAY: 5-[address]: Sin TID: [id number]
[2022-03-28 05:38] VITALS: BP 126/74
[2022-03-28] MEDS: LEVOTHYROXINE 150 MCG TABLET PO SCH (05:42)
[2022-03-28] MEDS: LACTOBACILLUS RHAMNOSUS GG 1 CAPSULE. PO SCH ×2 (07:24→20:05)
[2022-03-28] MEDS: CARVEDILOL 12.5 MG TABLET PO SCH ×2 (07:24→17:48)
[2022-03-28] MEDS: SERTRALINE 25 MG TABLET. PO SCH (07:24)
[2022-03-28] MEDS: PANTOPRAZOLE 40 MG TABLET. PO SCH ×2 (07:24→20:05)
[2022-03-28] MEDS: DIVALPROEX 125 MG CAP.SPRINK PO SCH ×2 (07:24→20:04)
[2022-03-28] MEDS: CEPHALEXIN 250 MG CAPSULE PO SCH ×3 (07:24→20:05)
[2022-03-28] MEDS: NYSTATIN TOPICAL POWDER 15GM BOTTLE. TP SCH ×2 (07:25→20:09)
[2022-03-28] MEDS: HALOPERIDOL 10 MG/5 ML ORAL.CONC. PO SCH ×2 (07:25→20:06)
[2022-03-28 15:31] VITALS: BP 136/74
[2022-03-28] MEDS: traZODone 50 MG TABLET. PO SCH (20:04)
[2022-03-28] MEDS: MELATONIN 3 MG TABLET PO SCH (20:05)
[2022-03-29 05:40] VITALS: BP 134/86
[2022-03-29] MEDS: LEVOTHYROXINE 150 MCG TABLET PO SCH (06:00)
[2022-03-29] MEDS: HALOPERIDOL 10 MG/5 ML ORAL.CONC. PO SCH ×2 (07:34→20:08)
[2022-03-29] MEDS: DIVALPROEX 125 MG CAP.SPRINK PO SCH ×2 (07:34→20:06)
[2022-03-29] MEDS: SERTRALINE 25 MG TABLET. PO SCH (07:34)
[2022-03-29] MEDS: LACTOBACILLUS RHAMNOSUS GG 1 CAPSULE. PO SCH ×2 (07:34→20:06)
[2022-03-29] MEDS: CARVEDILOL 12.5 MG TABLET PO SCH ×2 (07:35→16:31)
[2022-03-29] MEDS: PANTOPRAZOLE 40 MG TABLET. PO SCH ×2 (07:35→20:08)
[2022-03-29] MEDS: CEPHALEXIN 250 MG CAPSULE PO SCH ×3 (07:35→20:06)
[2022-03-29] MEDS: NYSTATIN TOPICAL POWDER 15GM BOTTLE. TP SCH ×2 (07:35→20:09)
[2022-03-29 07:44] LABS: BASO % 1 % (0-3); EOS # 0.1 x10^3/uL (0.0-0.7); EOS % 1 % (0-3); HEMOGLOBIN 9.9 g/dL (12.0-15.5); LYMPH # 1.7 x10^3/uL (1.0-4.8); LYMPH % 25 % (24-48); MEAN CORPUSCULAR HEMOGLOBIN 24 pg (25-35); MEAN CORPUSCULAR HGB CONC 31 g/dL (31-37); MEAN CORPUSCULAR VOLUME 77 fL (79-100); MONO # 0.8 x10^3/uL (0.0-1.1); MONO % 12 % (0-9); NEUT % 61 % (31-73); PLATELET COUNT 218 x10^3/uL (140-400); RED BLOOD COUNT 4.17 x10^6/uL (3.50-5.40); RED CELL DISTRIBUTION WIDTH 25.8 % (11.5-14.5); WHITE BLOOD COUNT 6.5 x10^3/uL (4.0-11.0)
[2022-03-29 08:02] LABS: ALBUMIN 2.5 g/dL (3.4-5.0); ALBUMIN/GLOBULIN RATIO 0.6 (1.0-1.7); CALCIUM 8.6 mg/dL (8.5-10.1); GFR 53.3; POTASSIUM 3.8 mmol/L (3.5-5.1); TOTAL BILIRUBIN 0.4 mg/dL (0.2-1.0); TOTAL PROTEIN 6.9 g/dL (6.4-8.2)
--- NOTE | 2022-03-29 10:40 | PN ---
DATE: 03/28/2022 SUBJECTIVE: The patient was seen today, met with the staff, chart reviewed, and covering for Dr. Vergara. The patient apparently had some problems with chest pain, but today denies. The patient states she is feeling better and no physical complaints. The patient has been staying in bed most of the day. OBSERVATION: VITAL SIGNS: Temperature 97.4, blood pressure 136/74, pulse 75, respirations 18, O2 sat 95%. GENERAL: Slept about 7 hours last night. The patient's appetite is fair. LABORATORY DATA: The patient's lab reviewed. CURRENT MEDICATIONS: Zoloft 75 mg daily, cephalexin 250 mg t.i.d., Seroquel 25 mg at night p.r.n., Haldol 1 mg twice a day, Depakote 125 mg twice a day, trazodone 50 mg at night, melatonin 6 mg at night, and lorazepam 1 mg q. 6 hours p.r.n. and Haldol 1 mg q. 6 hours p.r.n. The patient is not having any side effects. ASSESSMENT: 1. Major depressive disorder, moderate to severe. 2. Cognitive disorder, unspecified. 3. Anxiety disorder, unspecified. PLAN: To continue with treatment. Also, requesting for EKG. LENGTH OF STAY: Five to seven days. PRINCESS/CLAUDINE/ITZ/OSMAN DR: PRINCESS/juan luis TID: [id number]
[2022-03-29 16:05] VITALS: BP 147/76
[2022-03-29] MEDS: MELATONIN 3 MG TABLET PO SCH (20:06)
[2022-03-29] MEDS: traZODone 50 MG TABLET. PO SCH (20:06)
[2022-03-30] MEDS: LORazepam 1 MG TABLET PO PRN ×2 (00:41→23:11)
--- NOTE | 2022-03-30 01:57 | PN ---
DATE: 03/29/2022 SUBJECTIVE: The patient was seen today, met with the staff. Chart was reviewed and covering for Dr. Vergara. Staff reports continued social withdrawal, isolating herself. Minimal interaction with the staff and decreased psychomotor activity, but no other problems. Currently, she is on wheelchair. OBSERVATION: VITAL SIGNS: Stable. GENERAL: The patient's appetite and sleep have improved. LABORATORY DATA: The patient's lab reviewed. CURRENT MEDICATIONS: Zoloft 75 mg daily, Seroquel 25 mg at night p.r.n., Haldol 1 mg twice a day, Depakote 125 mg twice a day, trazodone 50 mg at night, melatonin 6 mg at night, lorazepam 1 mg q. 6 hours p.r.n. and Haldol 1 mg q. 6 hours p.r.n. She is not showing any side effects to medications. ASSESSMENT: 1. Major depressive disorder, moderate to severe. 2. Cognitive disorder, unspecified. 3. Anxiety disorder, unspecified. PLAN: To continue with the treatment. LENGTH OF STAY: Five to six days. SHON DR: Sin TID: [id number]
[2022-03-30] MEDS: LEVOTHYROXINE 150 MCG TABLET PO SCH (05:09)
[2022-03-30 05:50] VITALS: BP 146/82
[2022-03-30] MEDS: CEPHALEXIN 250 MG CAPSULE PO SCH ×3 (07:19→20:19)
[2022-03-30] MEDS: DIVALPROEX 125 MG CAP.SPRINK PO SCH ×2 (07:20→20:19)
[2022-03-30] MEDS: CARVEDILOL 12.5 MG TABLET PO SCH ×2 (07:20→16:04)
[2022-03-30] MEDS: LACTOBACILLUS RHAMNOSUS GG 1 CAPSULE. PO SCH ×2 (07:20→20:19)
[2022-03-30] MEDS: SERTRALINE 25 MG TABLET. PO SCH (07:20)
[2022-03-30] MEDS: HALOPERIDOL 10 MG/5 ML ORAL.CONC. PO SCH ×2 (07:20→20:20)
[2022-03-30] MEDS: PANTOPRAZOLE 40 MG TABLET. PO SCH ×2 (07:20→20:18)
[2022-03-30] MEDS: NYSTATIN TOPICAL POWDER 15GM BOTTLE. TP SCH ×2 (07:21→20:26)
[2022-03-30] MEDS ORDERED: MINERAL OIL/PETROLATUM TOPICAL CREAM 113GM JAR. TP PRN (09:45)
[2022-03-30 15:54] VITALS: BP 132/88
[2022-03-30] MEDS: MELATONIN 3 MG TABLET PO SCH (20:18)
[2022-03-30] MEDS: traZODone 50 MG TABLET. PO SCH (20:18)
[2022-03-30] MEDS: traMADol 50 MG TABLET PO PRN (21:57)
--- NOTE | 2022-03-31 01:34 | PN ---
DATE: 03/30/2022 SUBJECTIVE: The patient was seen today, met with the staff. Chart was reviewed and covering for Dr. Vergara. Staff reports that the patient did not sleep well last night. Apparently, she has been highly anxious, nervous, restlessness. The patient is compliant with the medications. OBSERVATION: VITAL SIGNS: Temperature 97.0, blood pressure 146/82, pulse 69, respirations 18, O2 sat 96%. CURRENT MEDICATIONS: Zoloft 75 mg daily, Seroquel 25 mg at night p.r.n., Haldol 1 mg twice a day, Depakote 125 mg twice a day, trazodone 50 mg at night, melatonin 6 mg at night, lorazepam 1 mg q. 6 hours p.r.n. and Haldol 1 mg q. 6 hours p.r.n. She is not presenting with any side effects. ASSESSMENT: 1. Major neurocognitive disorder, moderate to severe. 2. Cognitive disorder, unspecified. 3. Anxiety disorder, unspecified. PLAN: To continue with the treatment. LENGTH OF STAY: Five to seven days. YEC[address]IA DR: Sin TID: [id number]
[2022-03-31 05:29] VITALS: BP 127/84
[2022-03-31] MEDS: LEVOTHYROXINE 150 MCG TABLET PO SCH (05:35)
[2022-03-31] MEDS: NYSTATIN TOPICAL POWDER 15GM BOTTLE. TP SCH ×2 (09:00→19:55)
[2022-03-31] MEDS: PANTOPRAZOLE 40 MG TABLET. PO SCH ×2 (09:06→19:55)
[2022-03-31] MEDS: CEPHALEXIN 250 MG CAPSULE PO SCH ×3 (09:06→19:55)
[2022-03-31] MEDS: SERTRALINE 25 MG TABLET. PO SCH (09:06)
[2022-03-31] MEDS: DIVALPROEX 125 MG CAP.SPRINK PO SCH ×2 (09:07→19:55)
[2022-03-31] MEDS: HALOPERIDOL 10 MG/5 ML ORAL.CONC. PO SCH ×2 (09:07→19:55)
[2022-03-31] MEDS: CARVEDILOL 12.5 MG TABLET PO SCH ×2 (09:07→17:15)
[2022-03-31] MEDS: LACTOBACILLUS RHAMNOSUS GG 1 CAPSULE. PO SCH ×2 (09:07→19:55)
[2022-03-31 16:09] VITALS: BP 135/76
[2022-03-31] MEDS: LORazepam 1 MG TABLET PO PRN (18:14)
[2022-03-31] MEDS: MAG HYDROX/AL HYDROX/SIMETH 30 ML ORAL.SUSP PO PRN (18:14)
[2022-03-31] MEDS: MELATONIN 3 MG TABLET PO SCH (19:55)
[2022-03-31] MEDS: traZODone 50 MG TABLET. PO SCH (19:55)
[2022-03-31] MEDS: traMADol 50 MG TABLET PO PRN (19:56)
--- NOTE | 2022-03-31 23:25 | PN ---
DATE: 03/31/2022 SUBJECTIVE: The patient was seen today, met with the staff. Chart was reviewed. I am covering for Dr. Vergara. Staff reports social withdrawal, depressed mood, tearful and wanting to go home. The patient states she wants to go back home to her daughter. OBSERVATION: VITAL SIGNS: Temperature 97.2, blood pressure 135/76, pulse 75, respirations 20, O2 sat 94%. GENERAL: She slept about 5 hours last night. The patient's appetite is fair. CURRENT MEDICATIONS: Zoloft 75 mg daily, Seroquel 25 mg at night p.r.n., Haldol 1 mg twice a day, Depakote 125 mg twice a day, trazodone 50 mg at night, melatonin 6 mg at night, lorazepam 1 mg q. 6 hours p.r.n. and Haldol 1 mg q. 6 hours p.r.n. She is not having any side effects. ASSESSMENT: 1. Major neurocognitive disorder, moderate to severe. 2. Cognitive disorder, unspecified. 3. Anxiety disorder, unspecified. PLAN: To continue with the treatment. LENGTH OF STAY: Five to seven days. PRINCESS/OLMAN DR: PRINCESS/juan luis TID: [id number]
[2022-04-01] MEDS: LORazepam 1 MG TABLET PO PRN (02:15)
[2022-04-01] MEDS: LEVOTHYROXINE 150 MCG TABLET PO SCH (05:27)
[2022-04-01 05:32] VITALS: BP 122/80
[2022-04-01] MEDS: CEPHALEXIN 250 MG CAPSULE PO SCH ×3 (07:13→19:46)
[2022-04-01] MEDS: SERTRALINE 25 MG TABLET. PO SCH (07:13)
[2022-04-01] MEDS: PANTOPRAZOLE 40 MG TABLET. PO SCH ×2 (07:13→19:45)
[2022-04-01] MEDS: LACTOBACILLUS RHAMNOSUS GG 1 CAPSULE. PO SCH ×2 (07:13→19:45)
[2022-04-01] MEDS: DIVALPROEX 125 MG CAP.SPRINK PO SCH ×2 (07:13→19:45)
[2022-04-01] MEDS: HALOPERIDOL 10 MG/5 ML ORAL.CONC. PO SCH ×2 (07:14→19:45)
[2022-04-01] MEDS: CARVEDILOL 12.5 MG TABLET PO SCH ×2 (07:14→16:10)
[2022-04-01] MEDS: NYSTATIN TOPICAL POWDER 15GM BOTTLE. TP SCH ×2 (07:14→19:48)
--- NOTE | 2022-04-01 14:45 | TX PLAN ---
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 She used to be able to complete some of her own cares and do her own transfers from her motorized wheelchair at home. She more recently has not been able to do that. Pt acknowledges her behaviors at the facility. Per Maddie at [facility] pt also is aggressive as she will scratch staff arms and bite. Additional Admission Comments: Per intake record, pt is noncompliant, resistive to meds & cares, yelling, socially disruptive, combative towards staff, pulling items off nursing desk, throwing food, moving tables, threatening to kill staff. Problems Active Problems: Agitation, refusal to take medications, instructs staff out of room, confusion Inactive Problems: None noted at this time. Pt Strengths/Limitations Ability for Fisher: Poor Cognitive Functioning/Ability: Poor Communication Skills/Ability: Fair Financial Resources: Good Insight/Judgement: Poor Intellectual Ability: Good Physical Health: Poor Social Skills: Fair Stability in Family: Good Stability in School/Work: Good Verbal Skills: Fair Discharge Criteria Discharge Criteria: No need for close observ., Able to meet health needs, Adequate arrangements @DC, Verbal commit med comply, Improved behavior, Improved mood/thought Other Discharge Comments: None at this time. Preliminary Discharge Plan Preliminary DC Plan: Current Living Arrange. Special Precautions Special Precautions: Agitation/Assault Fall Risk: High Other Precautions (specify): Pt has been able to assist with transfers in the past, but has had falls. Initial D/C Plan Pt will return to [facility] once stable. Identified Discharge Needs: None at this time. Currently Utilized Resources Currently Utilized Resources/P: /DPOA-Albert Minesh PCP-Dr. Marroquin Psychiatrist-Dr. Vergara Facility-[facility] Social Service Designee-Maddie Pulido Community Resources: None at this time. Identified Problems/Hx/Goals Objectives/Short-Term Goals Short Term Goals: Control abnormal behavior, Dec. Aggression, Dec. Anxiety/Panic, Dec. Outbursts, Dec. Symp. Depression, Improved Social Skills, Medication Stabilization, Monitor Med Effects, Prevent Deterioration, Promote Coping Skill Short Term Goals in Patient's: To have less agitation, eliminate aggression and combativeness, improve cooperation and taking medications. Interventions/Frequency Staff Interventions/Frequency&: Psychiatry to assess pt three times per week for medication management. Nursing to assess behaviors, monitor medications, and complete 15 minute checks daily. Social work to see pt at least two times weekly to aid in return to placement. Activities to encourage pt to participate in group activities daily. History Vocational History: Pt worked for a short time at [employer] then at [employer]. Education: Pt graduated from [employer]. She did not attend college, but did receive some education through her job at [employer] to assist her in her position. Community Follow-up PCP Psychiatry Community Provider/Family Inpu: Pt /DPOA, Albert, was consulted for information as pt could only answer limited questions. Albert is available for further information should it be needed. Treatment Plan Explained Patient/Corn Grinder had this treatment plan explained to him/her as indicated by the signature below and has been given the opportunity to ask questions and make suggestions: Date: Patient/Corn Grinder Signature: Status Update Update Pt eating 20% of her meals and for the past several nights has shown to have poor sleep patterns; only getting between 4-5 hours of sleep and a few nights ago not getting any sleep. There is some concern if pt is getting her day and nights mixed up as during the day time she seems to be exhausted and falling asleep while toward the evening she starts ramping up. Pt has had some moments of demonstrating that she was unaware of her behaviors as she disrobed and was placed in a onsie. Pt has started having some increase in anxiety and agitation as she will let staff know that she wants to go to bed then shortly after she wants back up not realizing that she has just requested to lay down. Pt is currently being treated for a UTI. Pt VPA level will be ordered to be repeated on 04/02/22 as it was last checked on 03/22/22 and was subtherapeutic. Pt will return to [facility] once stable. VON PRETTY April 01, 2022 14:45
[2022-04-01 16:02] VITALS: BP 140/77
[2022-04-01 16:10] VITALS: BP 140/77
[2022-04-01] MEDS ORDERED: QUEtiapine 25 MG TABLET. PO SCH (17:00)
[2022-04-01] MEDS: traZODone 50 MG TABLET. PO SCH (19:45)
[2022-04-01] MEDS: MELATONIN 3 MG TABLET PO SCH (19:45)
[2022-04-02] MEDS ORDERED: buPROPion XL 150 MG TAB.ER.24H PO SCH (09:00)
== END 2022-04-02 | DRG 56 ==
LOC: ER 10:56 → GEROPSY 14:04
PROVIDERS: ADMIT Psychiatry & Neurology Psychiatry; ATTEND Psychiatry & Neurology Psychiatry
DX: G30.9 Alzheimer's disease, unspecified (principal); F05 Delirium due to known physiological condition; I50.33 Acute on chronic diastolic (congestive) heart failure; I11.0 Hypertensive heart disease with heart failure; F32.2 Major depressive disorder, single episode, severe without psychotic features; F01.51 Vascular dementia, unspecified severity, with behavioral disturbance; N39.0 Urinary tract infection, site not specified; R45.851 Suicidal ideations; F02.81 Dementia in other diseases classified elsewhere, unspecified severity, with behavioral disturbance; I25.10 Atherosclerotic heart disease of native coronary artery without angina pectoris; E03.9 Hypothyroidism, unspecified; E78.00 Pure hypercholesterolemia, unspecified; E78.5 Hyperlipidemia, unspecified; F41.9 Anxiety disorder, unspecified; G25.81 Restless legs syndrome; I48.0 Paroxysmal atrial fibrillation; M79.7 Fibromyalgia; M81.0 Age-related osteoporosis without current pathological fracture; Z51.5 Encounter for palliative care; Z86.711 Personal history of pulmonary embolism; Z86.73 Personal history of transient ischemic attack (TIA), and cerebral infarction without residual deficits; Z87.440 Personal history of urinary (tract) infections; Z90.710 Acquired absence of both cervix and uterus; Z91.19 Patient's noncompliance with other medical treatment and regimen; E66.9 Obesity, unspecified; K21.9 Gastro-esophageal reflux disease without esophagitis; M19.90 Unspecified osteoarthritis, unspecified site; Z20.822 Contact with and (suspected) exposure to COVID-19; Z90.49 Acquired absence of other specified parts of digestive tract; Z66 Do not resuscitate; Z88.0 Allergy status to penicillin; Z88.8 Allergy status to other drugs, medicaments and biological substances; Z91.010 Allergy to peanuts; F63.9 Impulse disorder, unspecified; Z79.899 Other long term (current) drug therapy
CPT/HCPCS: 36415; 80053; 80061; 80164; 81001; 82306; 82947; 83036; 83540; 83550; 83735; 84436; 84443; 84480; 85025; 85379; 86592; 87077; 87086; 87186; 87426; 93005; Q0162; U0003; 99285-25